=== PATIENT | male | born 1980 | race African-American/Black ===

== ENCOUNTER 2017-03-22 13:57 | Inpatient (IN) | payer SELFPAY ==
[2017-03-22] VITALS (14 sets, daily range): BP systolic 137–235; BP diastolic 90–132; PULSE 60–83; RESP 14–20; TEMP 97.6–97.9; O2SAT 97–100
[~2017-03-22] VITALS: Ht 172.7 cm; Wt 78.3 kg
--- NOTE | 2017-03-22 14:33 | RADRPT ---
EXAM DATE/TIME: 03/22/2017 14:07 [facility] COMPARISON: No previous studies available for comparison. INDICATIONS : Found unresponsive, possible seizures. RADIATION DOSE: 35.73 CTDIvol (mGy) MEDICAL HISTORY : Non-responsive. SURGICAL HISTORY : Non-responsive. ENCOUNTER: Initial ACUITY: 1 day PAIN SCALE: Non-responsive LOCATION: neck TECHNIQUE: Volumetric scanning of the cervical spine was performed. Multiplanar reconstructions in the sagittal, coronal and oblique axial planes were performed. Using automated exposure control and adjustment o f the mA and/or kV according to patient size, radiation dose was kept as low as reasonably achievable to obtain optimal diagnostic quality images. DICOM format image data is available electronically f or review and comparison. FINDINGS: VERTEBRAE: Normal vertebral body height. ALIGNMENT: No evidence of subluxation. C2-C3: The bony spinal canal is normal in size. No evidence of disc bulge or herniation. The neural forami na are bilaterally patent. C3-C4: The bony spinal canal is normal in size. No evidence of disc bulge or herniation. The neural forami na are bilaterally patent. C4-C5: The bony spinal canal is normal in size. No evidence of disc bulge or herniation. The neural forami na are bilaterally patent. C5-C6: The bony spinal canal is normal in size. No evidence of disc bulge or herniation. The neural forami na are bilaterally patent. C6-C7: The bony spinal canal is normal in size. No evidence of disc bulge or herniation. The neural forami na are bilaterally patent. C7-T1: The bony spinal canal is normal in size. No evidence of disc bulge or herniation. The neural forami na are bilaterally patent. CONCLUSION: 1. No acute disease. 2. Minimal cervical spondylosis is noted at C4-5 and to a lesser extent at C3-4 and C5-6. Livan Dos Santos MD on March 22, 2017 at 14:27 Board Certified Radiologist. This report was verified electronically.
--- NOTE | 2017-03-22 14:51 | RADRPT ---
EXAM DATE/TIME: 03/22/2017 14:05 [facility] COMPARISON: No previous studies available for comparison. INDICATIONS : Altered mental status, possible seizures. RADIATION DOSE: 56.35 CTDIvol (mGy) MEDICAL HISTORY : Non-responsive. SURGICAL HISTORY : Non-responsive. ENCOUNTER: Initial ACUITY: 1 day PAIN SCALE: Non-responsive LOCATION: cranial TECHNIQUE: Multiple contiguous axial images were obtained of the head. Using automated exposure control and adj ustment of the mA and/or kV according to patient size, radiation dose was kept as low as reasonably a chievable to obtain optimal diagnostic quality images. DICOM format image data is available electro nically for review and comparison. FINDINGS: CEREBRUM: The ventricles are normal for age. No evidence of midline shift, mass lesion, hemorrhage or acute in farction. No extra-axial fluid collections are seen. POSTERIOR FOSSA: The cerebellum and brainstem are intact. The 4th ventricle is midline. The cerebellopontine angle i s unremarkable. EXTRACRANIAL: The visualized portion of the orbits is intact. Mild polypoid disease in the base of the left maxilla ry sinus. SKULL: The calvaria is intact. No evidence of skull fracture. CONCLUSION: No acute intracranial findings. Kurt Ugarte MD on March 22, 2017 at 14:47 Board Certified Radiologist. This report was verified electronically.
[2017-03-22 15:30] LABS: BLOOD GAS BASE EXCESS 2.3 mmol/L (-2-2); BLOOD GAS CARBOXYHEMOGLOBIN 2.8 % (0-4); BLOOD GAS HCO3 27 mmol/L (22-26); BLOOD GAS METHEMOGLOBIN 0.6 % (0-2); BLOOD GAS O2 HGB SATURATION 88 % (90-100); BLOOD GAS OXYGEN CONTENT 15.8 Vol % (12.0-20.0); BLOOD GAS PCO2 48 mmHg (38-42); BLOOD GAS PO2 63 mmHG (61-120); BLOOD GAS TOTAL HGB 12.8 G/DL (12.0-16.0); TEMP CORR TO 98.6
[2017-03-22 15:31] LABS: CRITICAL VALUE YES; DRAW SITE RT RADIAL; FIO2 40 %; NUMBER OF ARTERIAL PUNCTURES 1; OXYGEN DEVICE VENTILATOR; STAT NO; ULNAR PULSE PRESENT; VENT SETTINGS AC RR14VT550PEEP5
--- NOTE | 2017-03-22 15:33 | PD ---
HPI Chief Complaint: Altered Mental Status Time Seen by Provider: 14:06 Travel History International Travel<30 days: No Contact w/Intl Traveler<30days: No History of Present Illness HPI Young male was brought in by [facility] after being found unresponsive on the street. It sounds like he had a seizure from bystanders. Pt had an episode of bilateral upper extremity rigidity as per [facility]. Blood glucose 252 here. Pt given narcan 0.4mg IV with no response. Pt witnessed to have generalized tonic clonic seizure that lasted for 30 seconds here. It stopped before medication was given. Pt emergently transported to CT scan and after CT, had another episode of generalized tonic clonic seizure in which ativan 6mg was given. Pt was never back to baseline and not arousable. [facility] Social History Tobacco Use: No Allergies-Medications (Allergen,Severity, Reaction): Coded Allergies: UNOBTAINABLE (Unverified , 03/22/17) AMS Review of Systems ROS Limitations: Unresponsive Physical Exam Narrative GENERAL: Young male, not responsive. SKIN: Focused skin assessment warm/dry. HEAD: Atraumatic. Normocephalic. EYES: Pupils equal and round at 5mm bilaterally. Reactive to light bilaterally. ENT: No nasal bleeding or discharge. Mucous membranes pink and moist. NECK:Place in cervical spine collar. CARDIOVASCULAR: Regular rate and rhythm. No murmur appreciated. RESPIRATORY: No accessory muscle use. Clear to auscultation. Breath sounds equal bilaterally. GASTROINTESTINAL: Abdomen soft, non-tender, nondistended. MUSCULOSKELETAL: No obvious deformities. No clubbing. No cyanosis. No edema. NEUROLOGICAL: Unresponsive. Seizure activity seen in the ED. Moves all extremities. Data Data Last Documented VS Vital Signs Date Time Temp Pulse Resp B/P Pulse Ox O2 Delivery O2 Flow Rate FiO2 03/22/17 16:00 97.9 73 20 175/110 99 Nasal Cannula 2 03/22/17 15:[address] Brain W/O Iv Contrast(Rout) (03/22/17 ) Ct Cerv Spine W/O Contrast (03/22/17 ) Electrocardiogram (03/22/17 14:06) Ammonia (03/22/17 14:06) Complete Blood Count With Diff (03/22/17 14:06) Comprehensive Metabolic Panel (03/22/17 14:06) Creatine Kinase (Cpk) (03/22/17 14:06) Prothrombin Time / Inr (Pt) (03/22/17 14:06) Act Partial Throm Time (Ptt) (03/22/17 14:06) Troponin I (03/22/17 14:06) Thyroid Stimulating Hormone (03/22/17 14:06) Urinalysis - C+S If Indicated (03/22/17 14:06) Arterial Blood Gas (Abg) (03/22/17 14:06) Chest, Single Ap (03/22/17 14:06) Blood Glucose (03/22/17 14:06) Ecg Monitoring (03/22/17 14:06) Iv Access Insert/Monitor (03/22/17 14:06) Oximetry (03/22/17 14:06) Drug Screen, Random Urine (03/22/17 14:06) Alcohol (Ethanol) (03/22/17 14:06) Tylenol (Acetaminophen) (03/22/17 14:06) Propofol 1000 Mg/100 Ml Inj (Diprivan 10 (03/22/17 14:45) ^ Infusion (03/22/17 14:31) RASS (03/22/17 14:31) Neurological Rass Scale LAKESHA.Q2H (03/22/17 14:31) Fosphenytoin Inj (Cerebyx Inj) (03/22/17 16:15) Midazolam Inj (Versed Inj) (03/22/17 16:30) Alcohol (Ethanol) (03/22/17 16:26) Salicylates (Aspirin) (03/22/17 16:26) Tylenol (Acetaminophen) (03/22/17 16:26) CKMB (03/22/17 14:40) CKMB% (03/22/17 14:40) Admit Order (Ed Use Only) (03/22/17 16:38) Potassium Chlor 20 Meq Premix (Kcl 20 Me (03/22/17 16:45) Labs Laboratory Tests Test 03/22/17 03/22/17 03/22/17 03/22/17 14:40 15:20 16:00 16:15 White Blood Count 3.9 TH/MM3 Red Blood Count 4.00 MIL/MM3 Hemoglobin 13.0 GM/DL Hematocrit 38.6 % Mean Corpuscular Volume 96.5 FL Mean Corpuscular Hemoglobin 32.5 PG Mean Corpuscular Hemoglobin 33.7 % Concent Red Cell Distribution Width 12.4 % Platelet Count 235 TH/MM3 Mean Platelet Volume 8.5 FL Neutrophils (%) (Auto) 49.6 % Lymphocytes (%) (Auto) 31.2 % Monocytes (%) (Auto) 15.9 % Eosinophils (%) (Auto) 2.5 % Basophils (%) (Auto) 0.8 % Neutrophils # (Auto) 2.0 TH/MM3 Lymphocytes # (Auto) 1.2 TH/MM3 Monocytes # (Auto) 0.6 TH/MM3 Eosinophils # (Auto) 0.1 TH/MM3 Basophils # (Auto) 0.0 TH/MM3 CBC Comment DIFF FINAL Differential Comment Prothrombin Time 11.4 SEC Prothromb Time International 1.0 RATIO Ratio Activated Partial 32.7 SEC Thromboplast Time Urine Color YELLOW Urine Turbidity CLEAR Urine pH 5.5 Urine Specific [place] 1.036 Urine Protein 30 mg/dL Urine Glucose (UA) NEG mg/dL Urine Ketones TRACE mg/dL Urine Occult Blood NEG Urine Nitrite NEG Urine Bilirubin NEG Urine Urobilinogen 4.0 MG/DL Urine Leukocyte Esterase NEG Urine RBC 2 /hpf Urine WBC 1 /hpf Urine Squamous Epithelial 1 /hpf Cells Urine Mucus FEW /lpf Microscopic Urinalysis Comment CATH-CULT NOT IND Sodium Level 142 MEQ/L Potassium Level 3.3 MEQ/L Chloride Level 105 MEQ/L Carbon Dioxide Level 29.6 MEQ/L Anion Gap 7 MEQ/L Blood Urea Nitrogen 11 MG/DL Creatinine 1.33 MG/DL Estimat Glomerular Filtration 46 ML/MIN Rate Random Glucose 127 MG/DL Calcium Level 8.5 MG/DL Total Bilirubin 0.9 MG/DL Aspartate Amino Transf 83 U/L (AST/SGOT) Alanine Aminotransferase 54 U/L (ALT/SGPT) Alkaline Phosphatase 81 U/L Total Creatine Kinase 2305 U/L Creatine Kinase MB 11.8 NG/ML Creatine Kinase MB % 0.5 % Troponin I LESS THAN 0.02 NG/ML Total Protein 7.1 GM/DL Albumin 3.4 GM/DL Thyroid Stimulating Hormone 0.555 uIU/ML 3rd Gen Urine Opiates Screen NEG Acetaminophen Level LESS THAN 2.0 MCG/ML Urine Barbiturates Screen NEG Urine Amphetamines Screen NEG Urine Benzodiazepines Screen POS Urine Cocaine Screen POS Urine Cannabinoids Screen POS Ethyl Alcohol Level LESS THAN 3 MG/DL Blood Gas Puncture Site RT RADIAL Blood Gas Patient Temperature 98.6 Blood Gas HCO3 27 mmol/L Blood Gas Base Excess 2.3 mmol/L Blood Gas Oxygen Saturation 88 % Arterial Blood pH 7.37 Arterial Blood Partial 48 mmHg Pressure CO2 Arterial Blood Partial 63 mmHG Pressure O2 Arterial Blood Oxygen Content 15.8 Vol % Arterial Blood 2.8 % Carboxyhemoglobin Arterial Blood Methemoglobin 0.6 % Blood Gas Hemoglobin 12.8 G/DL Oxygen Delivery Device VENTILATOR Blood Gas Ventilator Setting AC [id number] Blood Gas Inspired Oxygen 40 % Ammonia 35 MCMOL/L Salicylates Level LESS THAN 1.7 MG/DL [facility] Medical Decision Making Medical Screen Exam Complete: Yes Emergency Medical Condition: Yes Interpretation(s) EKG: NSR 76bpm. LAD. R prime in aVR. QRS narrow. QTc 451ms. Differential Diagnosis Status epilepticus vs. alcohol withdrawal vs. cocaine toxicity Narrative Course Young male with seizure like activity but never back to baseline. Pt found on the street with no history. Pt is afebrile and hypertensive. Pt given narcan 0.4mg IV with no change in mental status. Pt intubated for airway protection and status epilepticus. Labs reviewed, no leukocytosis. K: 3.3, will replaced with 20mEq KCl. Creatinine elevated at 1.33. CPK is elevated at 2305. Troponin negative. TSH normal. AST elevated. U tox is positive for benzodiazepine, cocaine and cannabinoids. Alcohol negative. Acetaminophen negative. CT brain negative. CT cspine negative. CXR showed ET tube in good position and NG tube tube. Pt empirically Critical Care Narrative Aggregate critical care time was 90 minutes. Time to perform other separately billable procedures was not included in the critical care time. My time did not include minutes spent treating any other patients simultaneously or on activities that did not directly contribute to the patient's treatment. The services I provided to this patient were to treat and/or prevent clinically significant deterioration that could result in: cardiovascular collapse or . I provided critical care services requiring my management, as noted below: Chart data review, documentation time, medication orders and management, vital sign assessments/reviewing monitor data, ordering and reviewing lab tests, ordering and interpreting/reviewing x-rays and diagnostic studies, care of the patient and discussion of the patient with the admitting physicians. Procedures Procedure Narrative The patient was put in optimal position for the procedure. Rapid sequence intubation was initiated by me using 20 milligrams of etomidate IV and 60 milligrams of rocuronium IV. The patient was intubated with a 8.0 cuffed endotracheal tube. Tube placement was confirmed by visualization of the tube and balloon passing through the cords, capnometry and subsequent chest x-ray. Breath sounds were equal and well aerated bilaterally postintubation. No breath sounds over stomach. Patient tolerated procedure well. Diagnosis Primary Impression: Altered mental status Qualified Code: R41.82 - Altered mental status, unspecified altered mental status type Additional Impression: Status epilepticus Admitting Information Admitting Physician Requests: Sue Pool DO Mar 22, 2017 15:33
--- NOTE | 2017-03-22 15:43 | RADRPT ---
EXAM DATE/TIME: 03/22/2017 14:26 [facility] COMPARISON: No previous studies available for comparison. INDICATIONS : Post intubation. MEDICAL HISTORY : Unobtainable SURGICAL HISTORY : Unobtainable. ENCOUNTER: Initial ACUITY: 1 day PAIN SCORE: Non-responsive. LOCATION: Bilateral chest FINDINGS: An endotracheal tube has its tip 4 cm above the liza. A nasogastric tube has its tip below diaphra gm. The heart and mediastinal structures are normal. The pulmonary vascular pattenr is also normal. The lungs are clear. CONCLUSION: 1. Endotracheal tube in good position 4 cm above the liza. 2. Nasogastric tube in good position in the stomach. 3. No acute focal pulmonary infiltrate or pulmonary vascular congestion. Livan Dos Santos MD on March 22, 2017 at 15:05 Board Certified Radiologist. This report was verified electronically.
[2017-03-22 15:45] LABS: BASOPHIL % 0.8 % (0.0-2.0); BLOOD, URINE NEG (NEG); EOSINOPHIL # 0.1 TH/MM3 (0-0.4); EOSINOPHIL % 2.5 % (0.0-4.0); GLUCOSE,URINE NEG (NEG); HEMATOCRIT 38.6 % (39.0-51.0); HEMO FLAGS DIFF FINAL; KETONE, URINE TRACE mg/dL (NEG); LYMPH % 31.2 % (9.0-44.0); LYMPHOCYTE # 1.2 TH/MM3 (1.0-4.8); MEAN CELL VOLUME 96.5 FL (80.0-100.0); MEAN CORPUSCULAR HEMOGLOBIN 32.5 PG (27.0-34.0); MEAN CORPUSCULAR HGB CONC 33.7 % (32.0-36.0); MONO % 15.9 % (0.0-8.0); MUCUS URINE FEW /lpf (OCC); NEUT % 49.6 % (16.0-70.0); NITRITE,URINE NEG (NEG); PH, URINE 5.5 (5.0-8.5); PLATELET COUNT 235 TH/MM3 (150-450); RED CELL DISTRIBUTION WIDTH 12.4 % (11.6-17.2); SQUAMOUS EPITHELIAL CELL URINE 1 /hpf (0-5); URINE COLOR YELLOW (YELLW/STRAW); WHITE BLOOD COUNT 3.9 TH/MM3 (4.0-11.0)
[2017-03-22 15:47] LABS: COMMENT (UR) CATH-CULT NOT IND; CULTURE IF INDICATED CATH CULTURE NOT IND
[2017-03-22 15:50] LABS: AMPHETAMINE, URINE NEG (NEG); BARBITURATES, URINE NEG (NEG); COCAINE, URINE POS (NEG)
[2017-03-22 15:57] LABS: APTT (PATIENT) 32.7 SEC (24.3-30.1); PROTHROMBIN TIME - PATIENT 11.4 SEC (9.8-11.6)
[2017-03-22] MEDS ORDERED: FOSPHENYTOIN INJ 1,000 MGPE in SODIUM CHLORIDE 0.9% INJ 50 ML IV ONE (16:15)
[2017-03-22 16:19] LABS: ALKALINE PHOSPHATASE 81 U/L (45-117); ALT (GPT) 54 U/L (12-78); ANION GAP 7 MEQ/L (5-15); AST (GOT) 83 U/L (15-37); BICARBONATE 29.6 MEQ/L (21.0-32.0); BLOOD UREA NITROGEN 11 MG/DL (7-18); CHLORIDE 105 MEQ/L (98-107); CREATINE KINASE 2305 U/L (39-308); GLOMERULAR FILTRATION RATE 46 ML/MIN (>89); SODIUM (NA) 142 MEQ/L (136-145); TOTAL BILIRUBIN ADULT 0.9 MG/DL (0.2-1.0)
[2017-03-22] MEDS: PROPOFOL 1000 MG/100 ML INJ 100 ML IV SCH ×2 (16:25→21:15)
[2017-03-22 16:28] LABS: ACETAMINOPHEN LESS THAN 2.0 MCG/ML (10.0-30.0); POTASSIUM 3.3 MEQ/L (3.5-5.1)
[2017-03-22] MEDS ORDERED: MIDAZOLAM HCL 2 MG/2 ML VIAL IV PUSH ONE (16:30)
--- NOTE | 2017-03-22 16:39 | EKG ---
Date Performed: 03/22/2017 Time Performed: 14:46:46 PTAGE: 89 years EKG: Sinus rhythm WITH SINUS ARRHYTHMIA BORDERLINE LEFT AXIS DEVIATION MODERATE INTRAVENTRICULAR CONDUCTION DELAY BORD CARLOS ECG NO PREVIOUS TRACING DOCTOR: Sea Osman Interpretating Date/Time 03/22/2017 16:36:51
[2017-03-22 16:41] LABS: CKMB 11.8 NG/ML (0.5-3.6)
[2017-03-22] MEDS ORDERED: ETOMIDATE 20 MG/10 ML VIAL IV PUSH ONE (16:45)
[2017-03-22] MEDS ORDERED: ROCURONIUM INJ 50 MG/5 ML VIAL IV ONE (16:45)
[2017-03-22] MEDS ORDERED: POTASSIUM CHLOR 20 MEQ PREMIX 100 ML IV ONE (16:45)
[2017-03-22 16:58] LABS: ACETAMINOPHEN LESS THAN 2.0 MCG/ML (10.0-30.0)
[2017-03-22] MEDS ORDERED: CHLORHEXIDINE GLUCONATE 2 % 1 PACK (2 CLOTHS) TOP PRN (17:30)
[2017-03-22] MEDS ORDERED: ONDANSETRON HCL 4 MG/2 ML VIAL IV PRN (17:30)
[2017-03-22] MEDS ORDERED: BISACODYL 10 MG SUPP RECTAL PRN (17:30)
[2017-03-22] MEDS ORDERED: MAGNESIUM HYDROXIDE SUSP 30 ML CUP PO PRN (17:30)
[2017-03-22] MEDS ORDERED: RESP: ALBUTEROL 2.5 MG/IPRATROPIUM 0.5 MG NEB (PRN) INH (17:30)
[2017-03-22] MEDS ORDERED: LACTULOSE SYRUP 20 GM/30 ML CUP PO PRN (17:30)
[2017-03-22] MEDS ORDERED: SENNOSIDES 8.6 MG TAB PO PRN (17:30)
[2017-03-22] MEDS ORDERED: MISCELLANEOUS NURSING INFORMATION XX SCH (17:30)
[2017-03-22] MEDS: SODIUM CHLOR 0.9% 1000 ML INJ 1,000 ML IV SCH (18:44)
[2017-03-22] MEDS: PANTOPRAZOLE SODIUM 40 MG VIAL IV SCH (18:44)
--- NOTE | 2017-03-22 19:04 | HHI.HP ---
HPI Service Critical Care Medicine Primary Care Physician Unknown Admission Diagnosis AMS, status epilepticus Diagnosis: Travel History International Travel<30 Days: No Contact w/Intl Traveler <30 Da: No Traveled to Known Affected Are: No History of Present Illness Young male was brought in by [facility] after being found unresponsive on the street. Per bystanders it seemed to be like a seizure episode. His blood glucose at the scene was 252 here. He was given narcan 0.4mg IV with no response. Later he was witnessed to have generalized tonic clonic seizure that lasted for 30 seconds here in the emergency department. It stopped before medication was given. The CT head was obtained emergently and shortly after the CT was done he had another episode of generalized tonic clonic seizure in which ativan 6mg was given. He was intubated for an airway protection and admitted to ICU. Review of Systems ROS Unable to obtain patient is sedated and intubated and unresponsive Past Family Social History Allergies: Coded Allergies: UNOBTAINABLE (Unverified , 03/22/17) AMS Past Medical History Unable to obtain, patient is sedated and intubated Past Surgical History Unable to obtain, patient is sedated and intubated Reported Medications Unable to obtain, patient is sedated and intubated Active Ordered Medications Current Medications Medications (Trade) Dose Ordered Sig/Hillary Route PRN Reason Start Time Stop Time Status Last Admin Dose Admin Propofol 100 ml @ 0 mls/hr TITRATE IV 03/22/17 14:45 03/22/17 21:15 Sodium Chloride (NS 1000 ml Inj) 1,000 ml @ 84 mls/hr [id number] IV 03/22/17 18:00 03/22/17 18:44 Acetaminophen (Tylenol) 650 mg Q6H PRN PO PAIN 1-10 AND/OR FEVER >101F 03/22/17 17:30 Pantoprazole Sodium (Protonix Inj) 40 mg DAILY IV 03/22/17 18:30 03/22/17 18:44 Ondansetron HCl (Zofran Inj) 4 mg Q6H PRN IV NAUSEA OR VOMITING 03/22/17 17:30 Miscellaneous Information 1 [id number] XX 03/22/17 17:30 Chlorhexidine Gluconate (Chlorhexidine 2% Cloth) 3 pack Taper DAILY@04 TOP 03/23/17 04:00 03/19/18 03:59 Chlorhexidine Gluconate (Chlorhexidine 2% Cloth) 3 pack UNSCH PRN TOP HYGIENIC CARE 03/22/17 17:30 Senna/Docusate Sodium (Bruna-Colace) 1 tab BID PO 03/22/17 21:00 Magnesium Hydroxide (Milk Of Magnesia Liq) 30 ml Q12H PRN PO MILD - MODERATE CONSTIPATION 03/22/17 17:30 Sennosides (Senokot) 17.2 mg Q12H PRN PO MODERATE - SEVERE CONSTIPATION 03/22/17 17:30 Bisacodyl (Dulcolax Supp) 10 mg DAILY PRN RECTAL SEVERE CONSITIPATION 03/22/17 17:30 Lactulose (Lactulose Liq) 30 ml DAILY PRN PO SEVERE CONSITIPATION 03/22/17 17:30 Lorazepam (Ativan Inj) 1 mg Q15M PRN IV PUSH seizures 03/22/17 17:45 Hydralazine HCl (Apresoline Inj) 20 mg Q6H PRN IV SEE LABEL COMMENTS 03/22/17 21:45 03/22/17 21:56 Family History Unable to obtain, patient is sedated and intubated Social History Unable to obtain, patient is sedated and intubated Physical Exam Vital Signs Vital Signs Date Time Temp Pulse Resp B/P Pulse Ox O2 Delivery O2 Flow Rate FiO2 03/22/17 18:30 100 100 03/22/17 17:58 72 173/113 03/22/17 17:04 97 60 03/22/17 17:00 61 173/110 03/22/17 16:45 137/90 03/22/17 16:00 97.9 73 20 175/110 99 Nasal Cannula 2 03/22/17 15:15 211/132 03/22/17 15:15 97.9 72 20 173/113 100 Ventilator 60 03/22/17 14:38 97 40 03/22/17 14:25 83 20 235/132 99 Ventilator 03/22/17 14:21 78 16 164/95 99 Physical Exam GENERAL: Well-nourished, well-developed patient. SKIN: Warm and dry. HEAD: Normocephalic. EYES: No scleral icterus. No injection or drainage. NECK: Supple, trachea midline. No JVD or lymphadenopathy. CARDIOVASCULAR: Regular rate and rhythm without murmurs, gallops, or rubs. RESPIRATORY: Breath sounds equal bilaterally. No accessory muscle use. GASTROINTESTINAL: Abdomen soft, non-tender, nondistended. MUSCULOSKELETAL: No cyanosis, or edema. BACK: Nontender without obvious deformity. No CVA tenderness. EXTREMITIES: No clubbing cyanosis or edema Laboratory Laboratory Tests Test 03/22/17 03/22/17 03/22/17 03/22/17 14:40 15:20 16:00 16:15 White Blood Count 3.9 Red Blood Count 4.00 Hemoglobin 13.0 Hematocrit 38.6 Mean Corpuscular Volume 96.5 Mean Corpuscular Hemoglobin 32.5 Mean Corpuscular Hemoglobin 33.7 Concent Red Cell Distribution Width 12.4 Platelet Count 235 Mean Platelet Volume 8.5 Neutrophils (%) (Auto) 49.6 Lymphocytes (%) (Auto) 31.2 Monocytes (%) (Auto) 15.9 Eosinophils (%) (Auto) 2.5 Basophils (%) (Auto) 0.8 Neutrophils # (Auto) 2.0 Lymphocytes # (Auto) 1.2 Monocytes # (Auto) 0.6 Eosinophils # (Auto) 0.1 Basophils # (Auto) 0.0 CBC Comment DIFF FINAL Differential Comment Prothrombin Time 11.4 Prothromb Time International 1.0 Ratio Activated Partial 32.7 Thromboplast Time Urine Color YELLOW Urine Turbidity CLEAR Urine pH 5.5 Urine Specific [place] 1.036 Urine Protein 30 Urine Glucose (UA) NEG Urine Ketones TRACE Urine Occult Blood NEG Urine Nitrite NEG Urine Bilirubin NEG Urine Urobilinogen 4.0 Urine Leukocyte Esterase NEG Urine RBC 2 Urine WBC 1 Urine Squamous Epithelial 1 Cells Urine Mucus FEW Microscopic Urinalysis Comment CATH-CULT NOT IND Sodium Level 142 Potassium Level 3.3 Chloride Level 105 Carbon Dioxide Level 29.6 Anion Gap 7 Blood Urea Nitrogen 11 Creatinine 1.33 Estimat Glomerular Filtration 46 Rate Random Glucose 127 Calcium Level 8.5 Total Bilirubin 0.9 Aspartate Amino Transf 83 (AST/SGOT) Alanine Aminotransferase 54 (ALT/SGPT) Alkaline Phosphatase 81 Total Creatine Kinase 2305 Creatine Kinase MB 11.8 Creatine Kinase MB % 0.5 Troponin I LESS THAN 0.02 Total Protein 7.1 Albumin 3.4 Thyroid Stimulating Hormone 0.555 3rd Gen Urine Opiates Screen NEG Acetaminophen Level LESS THAN 2.0 Urine Barbiturates Screen NEG Urine Amphetamines Screen NEG Urine Benzodiazepines Screen POS Urine Cocaine Screen POS Urine Cannabinoids Screen POS Ethyl Alcohol Level LESS THAN 3 Blood Gas Puncture Site RT RADIAL Blood Gas Patient Temperature 98.6 Blood Gas HCO3 27 Blood Gas Base Excess 2.3 Blood Gas Oxygen Saturation 88 Arterial Blood pH 7.37 Arterial Blood Partial 48 Pressure CO2 Arterial Blood Partial 63 Pressure O2 Arterial Blood Oxygen Content 15.8 Arterial Blood 2.8 Carboxyhemoglobin Arterial Blood Methemoglobin 0.6 Blood Gas Hemoglobin 12.8 Oxygen Delivery Device VENTILATOR Blood Gas Ventilator Setting AC [id number] Blood Gas Inspired Oxygen 40 Ammonia 35 Salicylates Level LESS THAN 1.7 Result Diagram: 03/22/17 1440 03/22/17 1440 Imaging Last 24 hours Impressions Chest X-Ray 03/22/17 1406 Signed Impressions: Service Date/Time: February 14:26 - CONCLUSION: 1. Endotracheal tube in good position 4 cm above the liza. 2. Nasogastric tube in good position in the stomach. 3. No acute focal pulmonary infiltrate or pulmonary vascular congestion. Livan Dos Santos MD Assessment and Plan Assessment and Plan Respiratory failure - Debated for an airway protection - No weaning pending until neurologically improved - Continue mechanical ventilation - CXR and ABG daily Status epilepticus - Loaded with Dilantin - Continue Dilantin scheduled - Propofol for seizure control as well - Further management per neurology - Aggressive IV fluid hydration Hypokalemia - Electrolyte replacement per ICU protocol Polysubstance abuse - Positive for cocaine marijuana - Monitor for withdrawal - Benzodiazepines when necessary DVT GI prophylaxis - Teds SCDs - Subcutaneous heparin - Pepcid Critical Care: The total critical care time was 35 minutes. Time to perform other separately billable procedures was not included in the critical care time. Bhavesh Rick MD Mar 22, 2017 19:04
[2017-03-22] MEDS: DOCUSATE SODIUM 50 MG/SENNA 8.6 MG TAB PO SCH (20:03)
[2017-03-22] MEDS: hydrALAZINE HCL 20 MG/ML VIAL IV PRN (21:56)
[2017-03-23] VITALS (19 sets, daily range): BP systolic 124–181; BP diastolic 67–123; PULSE 64–79; RESP 11–14; TEMP 97.9–99.1; O2SAT 95–100
[2017-03-23] MEDS ORDERED: POTASSIUM PHOSPHATE MONOBASIC 500 MG TAB PO/TUBE PRN (02:15)
[2017-03-23] MEDS ORDERED: POTASSIUM CHLOR 40 MEQ PREMIX 100 ML IV PRN ×2 (02:15)
[2017-03-23] MEDS ORDERED: SODIUM CHLOR 0.9% 1000 ML INJ 1,000 ML IV ONE ×3 (02:15)
[2017-03-23] MEDS ORDERED: SODIUM PHOSPHATE INJ 30 MMOL in SODIUM CHLOR 0.9% 250 ML INJ 240 ML IV PRN (02:15)
[2017-03-23] MEDS ORDERED: POTASSIUM PHOSPHATE INJ 30 MMOL in SODIUM CHLOR 0.9% 250 ML INJ 250 ML IV PRN (02:15)
[2017-03-23] MEDS ORDERED: POTASSIUM CHLORIDE 25 MEQ EFFERVESCENT TAB PO PRN (02:15)
[2017-03-23] MEDS ORDERED: MAGNESIUM SULFATE INJ 2 GM in SODIUM CHLORIDE 0.9% INJ 96 ML IV PRN (02:15)
[2017-03-23] MEDS ORDERED: MAGNESIUM OXIDE 400 MG TAB PO PRN (02:15)
[2017-03-23] MEDS ORDERED: POTASSIUM CHLOR 20 MEQ PREMIX 100 ML IV PRN ×2 (02:15)
[2017-03-23] MEDS ORDERED: POTASSIUM PHOSPHATE MONOBASIC 500 MG TAB PO PRN (02:15)
[2017-03-23] MEDS ORDERED: MAGNESIUM SULFATE INJ 4 GM in SODIUM CHLORIDE 0.9% INJ 92 ML IV PRN (02:15)
[2017-03-23] MEDS: CHLORHEXIDINE GLUCONATE 2 % 1 PACK (2 CLOTHS) TOP SCH (03:10)
[2017-03-23] MEDS: hydrALAZINE HCL 20 MG/ML VIAL IV PRN ×2 (04:04→09:39)
[2017-03-23] MEDS ORDERED: MIDAZOLAM 100 MG/ML INJ 100 ML IV SCH (05:00)
[2017-03-23 05:24] LABS: BICARBONATE 27.9 MEQ/L (21.0-32.0); MAGNESIUM 2.2 MG/DL (1.5-2.5); POTASSIUM 3.5 MEQ/L (3.5-5.1)
[2017-03-23] MEDS: fentaNYL DRIP 250 ML IV SCH ×2 (05:28→19:01)
[2017-03-23] MEDS: PHENYTOIN INJ 100 MG/2 ML VIAL IV SCH ×3 (05:56→21:01)
[2017-03-23] MEDS: SODIUM CHLOR 0.9% 1000 ML INJ 1,000 ML IV SCH ×3 (06:49→15:10)
[2017-03-23] MEDS ORDERED: DILTIAZEM HCL 25 MG/5 ML VIAL IV ONE (07:15)
[2017-03-23] MEDS: PROPOFOL 1000 MG/100 ML INJ 100 ML IV SCH ×4 (07:50→22:22)
--- NOTE | 2017-03-23 07:52 | HHI.CCPN ---
Subjective Remarks/Hospital Course Young male was brought in by [facility] after being found unresponsive on the street. Per bystanders it seemed to be like a seizure episode. His blood glucose at the scene was 252 here. He was given narcan 0.4mg IV with no response. Later he was witnessed to have generalized tonic clonic seizure that lasted for 30 seconds here in the emergency department. It stopped before medication was given. The CT head was obtained emergently and shortly after the CT was done he had another episode of generalized tonic clonic seizure in which ativan 6mg was given. He was intubated for an airway protection and admitted to ICU. Subjective: 03/23: The patient was noted to be hypertensive overnight MAP [id number], nonresponsive to IV hydralazine, and deep sedation. Patient receiving Cardizem IV this a.m.. The patient has not been responsive since admission to the ED, no further seizure activity. Patient continues on Dilantin. Plan to perform sedation vacation today, assess neurological status, obtain EEG. Urine toxicity revealed the patient was positive for cocaine, marijuana and benzodiazepine. Objective Vital Signs Date Time Temp Pulse Resp B/P Pulse Ox O2 Delivery O2 Flow Rate FiO2 03/23/17 06:00 69 03/23/17 04:06 100 50 03/23/17 04:00 99.1 11 181/123 03/22/17 16:00 Nasal Cannula 2 Intake and Output 03/22/17 03/22/17 03/23/17 08:00 16:00 00:00 Intake Total 348 ml Output Total 650 ml Balance -302 ml Result Diagram: 03/22/17 1440 03/23/17 0443 Other Results Laboratory Tests Test 03/22/17 15:20 Blood Gas Puncture Site RT RADIAL Blood Gas Patient Temperature 98.6 Blood Gas HCO3 27 mmol/L (22-26) Blood Gas Base Excess 2.3 mmol/L (-2-2) Blood Gas Oxygen Saturation 88 % (90-100) Arterial Blood pH 7.37 (7.380-7.420) Arterial Blood Partial 48 mmHg (38-42) Pressure CO2 Arterial Blood Partial 63 mmHG Pressure O2 (61-120) Arterial Blood Oxygen Content 15.8 Vol % (12.0-20.0) Arterial Blood 2.8 % (0-4) Carboxyhemoglobin Arterial Blood Methemoglobin 0.6 % (0-2) Blood Gas Hemoglobin 12.8 G/DL (12.0-16.0) Oxygen Delivery Device VENTILATOR Blood Gas Ventilator Setting AC [id number] Blood Gas Inspired Oxygen 40 % Imaging Last 24 hours Impressions Chest X-Ray 03/22/17 1406 Signed Impressions: Service Date/Time: February 14:26 - CONCLUSION: 1. Endotracheal tube in good position 4 cm above the liza. 2. Nasogastric tube in good position in the stomach. 3. No acute focal pulmonary infiltrate or pulmonary vascular congestion. Livan Dos Santos MD Objective Remarks GENERAL: Well-nourished, well-developed patient intubated and sedated SKIN: Warm and dry. HEAD: Normocephalic. EYES: No scleral icterus. No injection or drainage. NECK: Supple, trachea midline. No JVD or lymphadenopathy. Orotracheally intubated CARDIOVASCULAR: Regular rate and rhythm without murmurs, gallops, or rubs. RESPIRATORY: Mechanical ventilation Breath sounds equal bilaterally. GASTROINTESTINAL: Abdomen soft, non-tender, nondistended. OGT to gravity MUSCULOSKELETAL: No cyanosis, or edema. EXTREMITIES: No clubbing cyanosis or edema NEURO: GCS 3T. Intubated and sedated on Versed and fentanyl. Unable to assess movement of extremities Urinary Catheter: Yes Painting insert reason: Measure Accurate Output Date of Insertion: Mar 22, 2017 A/P Assessment and Plan Acute hypoxemic Respiratory failure - Intubated for an airway protection - No weaning pending until neurologically improved - Continue mechanical ventilation - Obtain ABG -Versed and fentanyl for ventilator synchrony Status epilepticus - Loaded with Dilantin - Continue Dilantin scheduled - Propofol for seizure control as well - Further management per neurology - Aggressive IV fluid hydration -Plan for sedation vacation today assess neurological status, early on Versed and fentanyl for ventilator synchrony Hypokalemia - Electrolyte replacement per ICU protocol Polysubstance abuse - Positive for cocaine marijuana - Monitor for withdrawal - Benzodiazepines when necessary Hypertensive crisis -Cardizem 10 mg IV 1 dose -Consider nicardipine infusion -Maintain systolic blood pressure less than 160 DVT GI prophylaxis - Teds SCDs - Subcutaneous heparin - Pepcid Dispo: Discussed with MACHINE OPERATOR CANE CUTTER at bedside. This patient remains critically ill with one or more organ systems which are or may become a threat to life. I have spent in excess of 30 minutes discontinuously in the care and management of this patient. This time is exclusive of procedures, and includes, but is not limited to, evaluation of the patient, review of the medical record, discussions with family, consultants, nursing staff, or respiratory therapy, and documentation in the medical record. Physician Maame Bose MD Mar 23, 2017 07:52
[2017-03-23] MEDS: DOCUSATE SODIUM 50 MG/SENNA 8.6 MG TAB PO SCH ×2 (09:39→21:01)
[2017-03-23] MEDS: PANTOPRAZOLE SODIUM 40 MG VIAL IV SCH (09:39)
[2017-03-23] MEDS: niCARdipine 25 MG/NS 250 ML Vial2Bag or IV room IV SCH ×6 (11:17→20:53)
--- NOTE | 2017-03-23 11:30 | EKG ---
Date Performed: 03/23/2017 Time Performed: 08:49:04 PTAGE: 89 years EKG: Sinus rhythm MARKED LEFT AXIS DEVIATION NONSPECIFIC ST ELEVATION ABNORMAL ECG INTERPRETATION BASED ON A DEFAULT A GE OF 40 YEARS NO SIGNIFICANT CHANGE FROM PRIOR ELECTROCARDIOGRAM. PREVIOUS TRACING : 03/22/2017 14.46 DOCTOR: Sea Osman Interpretating Date/Time 03/23/2017 11:29:41
--- NOTE | 2017-03-23 12:44 | ECHRPT ---
Indication: CONCLUSIONS Normal left ventricular size. Mild concentric left ventricular hypertrophy. The left ventricular systolic function is grossly normal on limited imaging with an EF of 78 %. No regional wall motion abnormalities are present. Left ventricular diastolic function parameters are normal. BP: 181 / 123 HR: 73 Rhythm: Sinus MEASUREMENTS (Male / Female) Normal Values Technical Quality:Good 2D ECHO LV Diastolic Diameter PLAX 4.7 cm 4.2 - 5.9 / 3.9 - 5.3 cm LV Systolic Diameter PLAX 2.9 cm IVS Diastolic Thickness 1.3 cm 0.6 - 1.0 / 0.6 - 0.9 cm LVPW Diastolic Thickness 1.3 cm 0.6 - 1.0 / 0.6 - 0.9 cm LV Relative Wall Thickness 0.5 LVOT Diameter 2.5 cm Aortic Root Diameter 3.7 cm LA Systolic Diameter LX 3.4 cm 3.0 - 4.0 / 2.7 - 3.8 cm M-MODE AV Cusp Separation MM 2.6 cm DOPPLER AV Peak Velocity 136.0 cm/s AV Peak Gradient 7.4 mmHg AV Mean Gradient 4.0 mmHg AV Velocity Time Integral 26.2 cm LVOT Peak Velocity 102.0 cm/s LVOT Peak Gradient 4.2 mmHg LVOT Velocity Time Integral 21.5 cm LVOT Cardiac Index 3883.2 cm/minm AV Area Cont Eq vti 4.0 cm AV Area Cont Eq pk 3.7 cm Mitral E Point Velocity 80.5 cm/s Mitral A Point Velocity 86.9 cm/s Mitral E to A Ratio 0.9 LV E' Lateral Velocity 9.7 cm/s Mitral E to LV E' Lateral Ratio 8.3 LV E' Septal Velocity 10.4 cm/s Mitral E to LV E' Septal Ratio 7.7 TR Peak Velocity 212.0 cm/s TR Peak Gradient 18.0 mmHg PV Peak Velocity 69.9 cm/s PV Peak Gradient 2.0 mmHg FINDINGS LEFT VENTRICLE Normal left ventricular size. Mild concentric left ventricular hypertrophy. The left ventricular systolic function is grossly normal on limited imaging with an EF of 78 %. No regional wall motion abnormalities are present. Left ventricular diastolic function parameters are normal. RIGHT VENTRICLE Normal right ventricular size and systolic function. LEFT ATRIUM The left atrial size is normal. RIGHT ATRIUM The right atrial size is normal. ATRIAL SEPTUM Normal atrial septal thickness without atrial level shunting by limited color doppler interrogation. AORTA The aortic root and proximal ascending aorta are normal in size on limited imaging. MITRAL VALVE Structurally normal mitral valve. [id number] mitral valve regurgitation There is an enlongated chordae with chordal SERAFIN without obstruction. AORTIC VALVE Trileaflet aortic valve. No aortic valve regurgitation. No aortic valve stenosis. TRICUSPID VALVE Structurally normal tricuspid valve. There is mild tricuspid valve regurgitation. PULMONARY VALVE No pulmonary valve regurgitation or stenosis. VESSELS The inferior vena cava was not well visualized. PERICARDIUM No pericardial effusion. Raymond Noble MD (Electronically Signed) Final Date:23 March 2017 12:43
[2017-03-23 13:15] LABS: ALT (GPT) 45 U/L (12-78); AST (GOT) 46 U/L (15-37)
[2017-03-23 13:18] LABS: ALKALINE PHOSPHATASE 76 U/L (45-117); INDIRECT BILIRUBIN 0.4 MG/DL (0.0-0.8); TOTAL BILIRUBIN ADULT 0.5 MG/DL (0.2-1.0)
--- NOTE | 2017-03-23 13:56 | MB ---
cc: FARAZ MABRY M.D. DATE OF CONSULTATION: 03/23/2017 REASON FOR CONSULTATION: He is seen in neurological consultation. He was brought to the hospital yesterday with the history of being found unresponsive on the street. The bystanders seen to be like a seizure episode. Blood sugar was 252 and he was given Narcan with no response to this. He was subsequently noted to have a tonic-clonic seizure in the emergency department. Apparently had a second seizure in the emergency room and he was intubated. He is seen in the intensive care unit and the sedation has been on hold for the short period of time, by the time I saw him. He had been on propofol and has been given Dilantin, low old being. The patient was awakened and with somatosensory stimulation. The pupils were small. With chest pinching / pressure stimulation he did withdraw moved, and looked towards the stimulation. He seemed to be able to move all four extremities to this type of stimulation. Reflexes were diminished, but present at the knees and nearly absent at the ankles. Plantar responses flexor. He was positive for cocaine and marijuana on the toxicology screen. ASSESSMENT: Encephalopathy with seizures. Encephalopathy likely related to drug abuse. The head CT and cervical spine CT were negative studies. He is intubated and Dilantin has been given. He is to have an electroencephalogram study and will continue Dilantin along with the remainder of the critical care management. I will follow the neurological course. At first his prognosis seems to be encouraging but evidently this is to worry to make a determination. Eventually he might benefit in having an MRI brain, but we will follow. MD NATASHA James/janis /10:19 AM /1:37 PM
[2017-03-23 17:32] LABS: CKMB 17.4 NG/ML (0.5-3.6)
[2017-03-23 18:36] LABS: BLOOD GAS BASE EXCESS -0.5 mmol/L (-2-2); BLOOD GAS CARBOXYHEMOGLOBIN 1.2 % (0-4); BLOOD GAS HCO3 24 mmol/L (22-26); BLOOD GAS O2 HGB SATURATION 94 % (90-100); BLOOD GAS OXYGEN CONTENT 17.4 Vol % (12.0-20.0); BLOOD GAS PCO2 39 mmHg (38-42); BLOOD GAS PO2 84 mmHg (61-120); BLOOD GAS TOTAL HGB 13.1 G/DL (12.0-16.0); CRITICAL VALUE NO; OXYGEN DEVICE VENTILATOR; TEMP CORR TO 98.6
[2017-03-23 18:37] LABS: DRAW SITE ART LINE; FIO2 40 %; STAT NO; VENT SETTINGS A/C 550/14/5PEEP
[2017-03-24] VITALS (18 sets, daily range): BP systolic 128–174; BP diastolic 75–94; PULSE 73–93; RESP 14–18; TEMP 97.8–99; O2SAT 83–100
[2017-03-24] MEDS: LORazepam 2 MG/ML VIAL IV PUSH PRN ×2 (00:50→14:03)
[2017-03-24] MEDS: CHLORHEXIDINE GLUCONATE 2 % 1 PACK (2 CLOTHS) TOP SCH (04:00)
[2017-03-24] MEDS: SODIUM CHLOR 0.9% 1000 ML INJ 1,000 ML IV SCH ×2 (04:17→15:28)
[2017-03-24 04:33] LABS: BLOOD GAS BASE EXCESS -0.5 mmol/L (-2-2); BLOOD GAS CARBOXYHEMOGLOBIN 1.4 % (0-4); BLOOD GAS HCO3 24 mmol/L (22-26); BLOOD GAS O2 HGB SATURATION 95 % (90-100); BLOOD GAS OXYGEN CONTENT 17.5 Vol % (12.0-20.0); BLOOD GAS PCO2 40 mmHg (38-42); BLOOD GAS PO2 96 mmHg (61-120); CRITICAL VALUE NO; DRAW SITE ART LINE; FIO2 40 %; OXYGEN DEVICE VENTILATOR; STAT NO; TEMP CORR TO 98.6
[2017-03-24 04:34] LABS: VENT SETTINGS VAC14/550/PEEP5
[2017-03-24 04:56] LABS: HEMATOCRIT 40.7 % (39.0-51.0); MEAN CELL VOLUME 96.2 FL (80.0-100.0); MEAN CORPUSCULAR HGB CONC 33.3 % (32.0-36.0); PLATELET COUNT 209 TH/MM3 (150-450); RED BLOOD COUNT 4.23 MIL/MM3 (4.50-5.90); RED CELL DISTRIBUTION WIDTH 12.9 % (11.6-17.2); REVIEW FLAG FINAL; WHITE BLOOD COUNT 11.6 TH/MM3 (4.0-11.0)
[2017-03-24 05:12] LABS: BICARBONATE 30.2 MEQ/L (21.0-32.0); MAGNESIUM 1.8 MG/DL (1.5-2.5); POTASSIUM 3.1 MEQ/L (3.5-5.1)
[2017-03-24] MEDS: PHENYTOIN INJ 100 MG/2 ML VIAL IV SCH ×3 (05:14→22:22)
[2017-03-24] MEDS: PROPOFOL 1000 MG/100 ML INJ 100 ML IV SCH (05:14)
[2017-03-24] MEDS: fentaNYL DRIP 250 ML IV SCH (05:14)
[2017-03-24] MEDS ORDERED: MAGNESIUM SULFATE 1 GM PREMIX 100 ML IV ONE (07:30)
[2017-03-24] MEDS ORDERED: DEXMEDETOMIDINE INJ 200 MCG in SODIUM CHLORIDE 0.9% INJ 50 ML IV SCH (07:45)
[2017-03-24] MEDS: PANTOPRAZOLE SODIUM 40 MG VIAL IV SCH (07:52)
[2017-03-24] MEDS: niCARdipine 25 MG/NS 250 ML Vial2Bag or IV room IV SCH ×2 (07:52)
[2017-03-24] MEDS: DOCUSATE SODIUM 50 MG/SENNA 8.6 MG TAB PO SCH ×2 (07:52→22:07)
--- NOTE | 2017-03-24 08:59 | HHI.CCPN ---
Subjective Remarks/Hospital Course Young male was brought in by [facility] after being found unresponsive on the street. Per bystanders it seemed to be like a seizure episode. His blood glucose at the scene was 252 here. He was given narcan 0.4mg IV with no response. Later he was witnessed to have generalized tonic clonic seizure that lasted for 30 seconds here in the emergency department. It stopped before medication was given. The CT head was obtained emergently and shortly after the CT was done he had another episode of generalized tonic clonic seizure in which ativan 6mg was given. He was intubated for an airway protection and admitted to ICU. Subjective: 03/23: The patient was noted to be hypertensive overnight MAP [id number], nonresponsive to IV hydralazine, and deep sedation. Patient receiving Cardizem IV this a.m.. The patient has not been responsive since admission to the ED, no further seizure activity. Patient continues on Dilantin. Plan to perform sedation vacation today, assess neurological status, obtain EEG. Urine toxicity revealed the patient was positive for cocaine, marijuana and benzodiazepine. 03/24: Tmax 99.0 Patient reportedly had one seizure last night and received Ativan 1 dose. EEG pending today. On sedation vacation yesterday the patient was moving extremities following commands, and combative. Plan for CPAP trials this a.m.. Nicardipine infusion discontinued. The patient was placed on Norvasc for continued hypertension. Objective Vital Signs Date Time Temp Pulse Resp B/P Pulse Ox O2 Delivery O2 Flow Rate FiO2 03/24/17 07:44 83 40 03/24/17 06:00 85 03/24/17 04:00 99.0 16 138/81 161/76 03/22/17 16:00 Nasal Cannula 2 Intake and Output 03/23/17 03/23/17 03/24/17 08:00 16:00 00:00 Intake Total 1911 ml 3145 ml 1065 ml Output Total 950 ml 3525 ml 1500 ml Balance 961 ml -380 ml -435 ml Result Diagram: 03/24/17 0430 03/24/17 0430 Other Results Laboratory Tests Test 03/23/17 03/24/17 18:30 04:18 Blood Gas Puncture Site ART LINE ART LINE Blood Gas Patient Temperature 98.6 98.6 Blood Gas HCO3 24 mmol/L 24 mmol/L (22-26) (22-26) Blood Gas Base Excess -0.5 mmol/L -0.5 mmol/L (-2-2) (-2-2) Blood Gas Oxygen Saturation 94 % (90-100) 95 % (90-100) Arterial Blood pH 7.40 7.40 (7.380-7.420) (7.380-7.420) Arterial Blood Partial 39 mmHg (38-42) 40 mmHg (38-42) Pressure CO2 Arterial Blood Partial 84 mmHg 96 mmHg Pressure O2 (61-120) (61-120) Arterial Blood Oxygen Content 17.4 Vol % 17.5 Vol % (12.0-20.0) (12.0-20.0) Arterial Blood 1.2 % (0-4) 1.4 % (0-4) Carboxyhemoglobin Arterial Blood Methemoglobin 1.0 % (0-2) 1.0 % (0-2) Blood Gas Hemoglobin 13.1 G/DL 13.0 G/DL (12.0-16.0) (12.0-16.0) Oxygen Delivery Device VENTILATOR VENTILATOR Blood Gas Ventilator Setting A/C VAC14/550/PEEP5 550/14/5PEEP Blood Gas Inspired Oxygen 40 % 40 % Imaging Last 24 hours Impressions Chest X-Ray 03/22/17 1406 Signed Impressions: Service Date/Time: February 14:26 - CONCLUSION: 1. Endotracheal tube in good position 4 cm above the liza. 2. Nasogastric tube in good position in the stomach. 3. No acute focal pulmonary infiltrate or pulmonary vascular congestion. Livan Dos Santos MD Objective Remarks GENERAL: Well-nourished, well-developed patient intubated and sedated SKIN: Warm and dry. HEAD: Normocephalic. EYES: No scleral icterus. No injection or drainage. NECK: Supple, trachea midline. No JVD or lymphadenopathy. Orotracheally intubated. c-collar in place CARDIOVASCULAR: Regular rate and rhythm without murmurs, gallops, or rubs. RESPIRATORY: Mechanical ventilation Breath sounds equal bilaterally. GASTROINTESTINAL: Abdomen soft, non-tender, nondistended. OGT to gravity MUSCULOSKELETAL: No cyanosis, or edema. EXTREMITIES: No clubbing cyanosis or edema NEURO: GCS 3T. Intubated and sedated placed on dexmedetomidine in anticipation for CPAP trials and possible extubation. His extremities 4, combative. Date of Insertion: Mar 22, 2017 A/P Assessment and Plan Acute hypoxemic Respiratory failure - Intubated for an airway protection -Begin CPAP trials -Versed and fentanyl discontinued, Precedex in anticipation for CPAP trials and possible extubation - Status epilepticus -03/22Loaded with Dilantin - Continue Dilantin scheduled - Further management per neurology - IV fluids normal saline at 125/hour -GCS 11 T -Neurology following Hypokalemia - Electrolyte replacement per ICU protocol Polysubstance abuse - Positive for cocaine marijuana - Monitor for withdrawal - Benzodiazepines when necessary Hypertensive crisis- -Norvasc 10 mg daily -Nicardipine discontinued -Maintain systolic blood pressure less than 160 DVT GI prophylaxis - Teds SCDs - Subcutaneous heparin - Pepcid Dispo: Discussed with HOUSE MOVER HELPER at bedside. This patient remains critically ill with one or more organ systems which are or may become a threat to life. I have spent in excess of 30 minutes discontinuously in the care and management of this patient. This time is exclusive of procedures, and includes, but is not limited to, evaluation of the patient, review of the medical record, discussions with family, consultants, nursing staff, or respiratory therapy, and documentation in the medical record. Physician Maame Bose MD Mar 24, 2017 08:59
[2017-03-24 09:28] LABS: CKMB 4.2 NG/ML (0.5-3.6)
--- NOTE | 2017-03-24 16:17 | HHI.PR ---
Review/Management Daily Summary 03/24 sedation beling reduced awakened partially to my exam 2 hrs ago followed simple commands and moveb all 4 limbs will review eeg and check dph level Subjective Subjective Comments seizure last night? Active Medications Current Medications Medications (Trade) Dose Ordered Sig/Hillary Route Start Time Stop Time Status Last Admin (NS 1000 ml Inj) 1,000 ml @ 84 mls/hr [id number] IV 03/22/17 18:00 03/24/17 15:28 (Tylenol) 650 mg Q6H PRN PO 03/22/17 17:30 (Protonix Inj) 40 mg DAILY IV 03/22/17 18:30 03/24/17 07:52 (Zofran Inj) 4 mg Q6H PRN IV 03/22/17 17:30 Miscellaneous Information 1 [id number] XX 03/22/17 17:30 (Chlorhexidine 2% Cloth) 3 pack Taper DAILY@04 TOP 03/23/17 04:00 03/19/18 03:59 03/24/17 04:00 (Chlorhexidine 2% Cloth) 3 pack UNSCH PRN TOP 03/22/17 17:30 (Bruna-Colace) 1 tab BID PO 03/22/17 21:00 03/24/17 07:52 (Milk Of Magnesia Liq) 30 ml Q12H PRN PO 03/22/17 17:30 (Senokot) 17.2 mg Q12H PRN PO 03/22/17 17:30 (Dulcolax Supp) 10 mg DAILY PRN RECTAL 03/22/17 17:30 (Lactulose Liq) 30 ml DAILY PRN PO 03/22/17 17:30 (Ativan Inj) 1 mg Q15M PRN IV PUSH 03/22/17 17:45 03/24/17 14:03 Hydralazine HCl 20 mg 20 mg Q6H PRN IV 03/22/17 21:45 03/23/17 09:39 Potassium Chloride 100 ml @ 50 mls/hr Q2H PRN IV 03/23/17 02:15 (KCl 20 Meq Premix Inj) 100 ml @ 50 mls/hr Q2H PRN IV 03/23/17 02:15 Potassium Bicarb/ Potassium Chloride 50 meq 50 meq UNSCH PRN PO 03/23/17 02:15 Potassium Chloride 100 ml @ 25 mls/hr UNSCH PRN IV 03/23/17 02:15 Potassium Chloride 100 ml @ 50 mls/hr Q2H PRN IV 03/23/17 02:15 (Magnesium Sulfate Inj/NS Inj) 100 ml @ 50 mls/hr UNSCH PRN IV 03/23/17 02:15 Magnesium Oxide 800 mg 800 mg UNSCH PRN PO 03/23/17 02:15 (Magnesium Sulfate Inj/NS Inj) 100 ml @ 50 mls/hr UNSCH PRN IV 03/23/17 02:15 Potassium Phosphate 2000 mg 2,000 mg Q4H PRN PO 03/23/17 02:15 (Sodium Phosphate Inj/NS 250 ml Inj) 250 ml @ 42 mls/hr UNSCH PRN IV 03/23/17 02:15 Potassium Phosphate 2000 mg 2,000 mg UNSCH PRN PO/TUBE 03/23/17 02:15 (Potassium Phosphate Inj/NS 250 ml Inj) 260 ml @ 42 mls/hr UNSCH PRN IV 03/23/17 02:15 (Dilantin Inj) 100 mg Q8HR IV 03/23/17 06:00 03/24/17 15:29 (Norvasc) 10 mg DAILY PO 03/24/17 09:00 03/24/17 07:52 Allergies Allergies Coded Allergies UNOBTAINABLE (Unverified03/22/17) Exam I&O / VS 03/23/17 03/23/17 03/24/17 15:00 23:00 07:00 Intake Total 3145 ml 1065 ml 1325 ml Output Total 3525 ml 1500 ml 2500 ml Balance -380 ml -435 ml -1175 ml Intake IV Total 3085 ml 1065 ml 1325 ml Tube Irrigant 60 ml Output Urine Total 3525 ml 1500 ml 2500 ml # Bowel Movements 0 Vital Signs Date Time Temp Pulse Resp B/P Pulse Ox O2 Delivery O2 Flow Rate FiO2 03/24/17 14:43 94 Nasal Cannula 4.00 03/24/17 14:00 81 03/24/17 12:02 100 40 03/24/17 12:00 75 03/24/17 12:00 40 03/24/17 12:00 98.6 75 14 144/94 100 155/84 03/24/17 10:00 100 40 03/24/17 10:00 79 03/24/17 08:00 98.7 82 15 142/87 99 169/82 03/24/17 08:00 40 03/24/17 08:00 82 03/24/17 07:44 83 40 03/24/17 06:00 85 03/24/17 04:11 97 40 03/24/17 04:00 99.0 81 16 138/81 97 161/76 03/24/17 04:00 40 03/24/17 04:00 81 03/24/17 02:00 80 03/24/17 01:22 96 40 03/24/17 00:00 73 03/24/17 00:00 40 03/24/17 00:00 97.8 73 14 140/83 96 167/79 03/23/17 22:22 95 40 03/23/17 22:00 67 03/23/17 20:31 96 40 03/23/17 20:00 98.0 66 14 129/76 97 154/73 03/23/17 20:00 40 03/23/17 20:00 66 03/23/17 18:00 64 Objective Micro and Labs Laboratory Tests Test 03/23/17 03/24/17 03/24/17 18:30 04:18 04:30 Blood Gas Puncture Site ART LINE ART LINE Blood Gas Patient Temperature 98.6 98.6 Blood Gas HCO3 24 24 Blood Gas Base Excess -0.5 -0.5 Blood Gas Oxygen Saturation 94 95 Arterial Blood pH 7.40 7.40 Arterial Blood Partial 39 40 Pressure CO2 Arterial Blood Partial 84 96 Pressure O2 Arterial Blood Oxygen Content 17.4 17.5 Arterial Blood 1.2 1.4 Carboxyhemoglobin Arterial Blood Methemoglobin 1.0 1.0 Blood Gas Hemoglobin 13.1 13.0 Oxygen Delivery Device VENTILATOR VENTILATOR Blood Gas Ventilator Setting A/C VAC14/550/PEEP5 550/14/5PEEP Blood Gas Inspired Oxygen 40 40 White Blood Count 11.6 Red Blood Count 4.23 Hemoglobin 13.5 Hematocrit 40.7 Mean Corpuscular Volume 96.2 Mean Corpuscular Hemoglobin 32.0 Mean Corpuscular Hemoglobin 33.3 Concent Red Cell Distribution Width 12.9 Platelet Count 209 Mean Platelet Volume 8.3 Sodium Level 141 Potassium Level 3.1 Chloride Level 107 Carbon Dioxide Level 30.2 Anion Gap 4 Blood Urea Nitrogen 2 Creatinine 0.69 Estimat Glomerular Filtration 120 Rate Random Glucose 107 Calcium Level 8.4 Phosphorus Level 2.3 Magnesium Level 1.8 Total Creatine Kinase 683 Creatine Kinase MB 4.2 Creatine Kinase MB % 0.6 Date/Time Procedure Status Source Growth 03/23/17 11:55 Aerobic Blood Culture - Preliminary Resulted Blood Peripheral NO GROWTH IN 1 DAY 03/23/17 11:55 Anaerobic Blood Culture - Preliminary Resulted Blood Peripheral NO GROWTH IN 1 DAY Gilson Lantigua MD Mar 24, 2017 16:17
--- NOTE | 2017-03-24 17:08 | MG ---
cc: FARAZ LANTIGUA M.D. Lab No: Date: 03/24/2017 Age: 40 (approx) Sex: M Race: HISTORY: An EEG was obtained on this approximately 40-year-old man with history of being intubated and agitated. Apparently the patient has had multiple seizures with a positive tox screen. DESCRIPTION OF RECORDING: The patient is sedated with Diprivan and Precedex. The EEG is showing low amplitude beta rhythms diffusely. There is some intermixed alpha activity in the 10 to 14 per second range. There are some theta and delta rhythms bilaterally. The background is at times reactive. Later on, there is muscle artifact with the patient raising the extremities and there is a lesser amount of the slower rhythms. Photic stimulation disclosed no significant changes. INTERPRETATION: This EEG shows predominantly asleep features without any distinct abnormality. Clinical correlation. Specifically, no epileptiform features present. Faraz Lantigua MD [facility] /4:57 PM /5:04 PM
[2017-03-24] MEDS ORDERED: ACETAMINOPHEN 1000 MG/100 ML VIAL IV ONE (17:30)
[2017-03-24] MEDS ORDERED: DEXTROSE 50% IN WATER 50 ML VIAL(D50) IV PRN (20:00)
[2017-03-24] MEDS ORDERED: GLUCAGON 1 MG/ML VIAL OTHER PRN (20:00)
[2017-03-24] MEDS ORDERED: methylPREDNISolone SOD SUCC 125 MG/2 ML VIAL IV PUSH ONE (20:15)
[2017-03-24] MEDS: INSULIN ASPART SUPPLEMENTAL SCALE SQ SCH (21:00)
[2017-03-25] VITALS (9 sets, daily range): BP systolic 135–170; BP diastolic 80–114; PULSE 68–92; RESP 18–20; TEMP 97.7–98.8; O2SAT 93–98
[2017-03-25] MEDS: SODIUM CHLOR 0.9% 1000 ML INJ 1,000 ML IV SCH ×2 (02:38→14:33)
[2017-03-25] MEDS: CHLORHEXIDINE GLUCONATE 2 % 1 PACK (2 CLOTHS) TOP SCH (04:00)
[2017-03-25 04:36] LABS: HEMATOCRIT 38.2 % (39.0-51.0); MEAN CELL VOLUME 96.2 FL (80.0-100.0); MEAN CORPUSCULAR HEMOGLOBIN 31.8 PG (27.0-34.0); MEAN CORPUSCULAR HGB CONC 33.1 % (32.0-36.0); PLATELET COUNT 176 TH/MM3 (150-450); RED BLOOD COUNT 3.97 MIL/MM3 (4.50-5.90); RED CELL DISTRIBUTION WIDTH 12.7 % (11.6-17.2); REVIEW FLAG FINAL; WHITE BLOOD COUNT 9.1 TH/MM3 (4.0-11.0)
[2017-03-25 04:55] LABS: POTASSIUM 3.8 MEQ/L (3.5-5.1)
[2017-03-25] MEDS: PHENYTOIN INJ 100 MG/2 ML VIAL IV SCH ×3 (05:34→20:47)
[2017-03-25] MEDS: methylPREDNISolone SOD SUCC 125 MG/2 ML VIAL IV PUSH SCH ×3 (05:34→18:11)
[2017-03-25] MEDS: INSULIN ASPART SUPPLEMENTAL SCALE SQ SCH ×4 (06:03→21:09)
[2017-03-25] MEDS: PANTOPRAZOLE SODIUM 40 MG VIAL IV SCH (07:58)
[2017-03-25] MEDS: DOCUSATE SODIUM 50 MG/SENNA 8.6 MG TAB PO SCH ×2 (08:04→20:49)
[2017-03-25] MEDS: ACETAMINOPHEN 325 MG TAB PO PRN ×2 (08:09→16:26)
[2017-03-25] MEDS ORDERED: MORPHINE SULFATE 4 MG/ML INJ IV ONE (12:30)
[2017-03-25] MEDS: LISINOPRIL 5 MG TAB PO SCH ×2 (12:41→20:46)
--- NOTE | 2017-03-25 17:18 | HHI.PR ---
Subjective Remarks patient looks in distress due to severe pain ,complaining of back pain he is asking for pain medication No chest pain or short of breath no headache, no fever blood pressure in the 170/114 I will add lisinopril Objective Vitals Vital Signs Date Time Temp Pulse Resp B/P Pulse Ox O2 Delivery O2 Flow Rate FiO2 03/25/17 15:46 98.2 91 20 141/85 95 03/25/17 12:03 98.5 89 20 166/96 93 03/25/17 09:33 98.8 87 20 170/114 97 03/25/17 08:00 98.0 83 20 169/104 95 Arterial Line 03/25/17 08:00 83 03/25/17 06:00 89 03/25/17 04:00 92 03/25/17 04:00 98.0 92 18 160/80 96 03/25/17 02:00 80 03/25/17 00:00 85 03/25/17 00:00 84 20 98 03/24/17 22:00 86 03/24/17 20:00 85 03/24/17 20:00 98.2 85 18 128/75 96 03/24/17 19:50 95 21 03/24/17 18:00 92 I/O 03/24/17 03/24/17 03/24/17 03/25/17 03/25/17 03/25/17 07:00 15:00 23:00 07:00 15:00 23:00 Intake Total 1325 ml 517 ml 1943 ml 1238 ml 480 ml Output Total 2500 ml 1100 ml 550 ml 650 ml Balance -1175 ml -583 ml 1393 ml 588 ml 480 ml Intake Oral 450 ml 640 ml 480 ml IV Total 1325 ml 517 ml 1493 ml 598 ml Output Urine Total 2500 ml 1100 ml 550 ml 650 ml # Bowel Movements 0 0 Result Diagram: 03/25/1742103/25/17421 Objective Remarks GENERAL: This is a well-nourished, well-developed patient, in no apparent distress. CARDIOVASCULAR: Regular rate and rhythm without murmurs, gallops, or rubs. RESPIRATORY: Clear to auscultation. Breath sounds equal bilaterally. No wheezes , rales, or rhonchi. GASTROINTESTINAL: Abdomen soft, non-tender, nondistended. Normal active bowel sounds MUSCULOSKELETAL: Extremities without clubbing, cyanosis, or edema. NEURO: Alert & Oriented x4 to person, place, time, situation. Moves all ext x4 Date of Insertion: Mar 22, 2017 A/P Assessment and Plan 03/25: Blood pressure still uncontrolled>> Add lisinopril EEG unremarkable, neuro following Continue monitoring ICU A/P Acute hypoxemic Respiratory failure -status post intubation Status epilepticus -03/22Loaded with Dilantin - Continue Dilantin scheduled - Further management per neurology - IV fluids normal saline at 125/hour -GCS 11 T -Neurology following Hypokalemia - Electrolyte replacement per ICU protocol Polysubstance abuse - Positive for cocaine marijuana - Monitor for withdrawal - Benzodiazepines when necessary Hypertensive crisis- -Norvasc 10 mg daily -Nicardipine discontinued -Maintain systolic blood pressure less than 160 DVT GI prophylaxis - Teds SCDs - Subcutaneous heparin - Drake Beebe MD Mar 25, 2017 17:18
[2017-03-25] MEDS: MORPHINE SULFATE 4 MG/ML INJ IV PRN (18:14)
[2017-03-26] VITALS (8 sets, daily range): BP systolic 139–183; BP diastolic 85–108; PULSE 76–95; RESP 18–20; TEMP 96.3–98.5; O2SAT 93–97
[2017-03-26] MEDS: MORPHINE SULFATE 4 MG/ML INJ IV PRN ×5 (00:19→23:35)
[2017-03-26] MEDS: methylPREDNISolone SOD SUCC 125 MG/2 ML VIAL IV PUSH SCH ×4 (00:19→17:57)
[2017-03-26] MEDS: SODIUM CHLOR 0.9% 1000 ML INJ 1,000 ML IV SCH ×2 (00:27→14:23)
[2017-03-26] MEDS: CHLORHEXIDINE GLUCONATE 2 % 1 PACK (2 CLOTHS) TOP SCH (00:27)
[2017-03-26] MEDS: PHENYTOIN INJ 100 MG/2 ML VIAL IV SCH ×3 (05:53→21:11)
[2017-03-26] MEDS: INSULIN ASPART SUPPLEMENTAL SCALE SQ SCH ×4 (05:54→21:00)
[2017-03-26] MEDS: DOCUSATE SODIUM 50 MG/SENNA 8.6 MG TAB PO SCH ×2 (08:31→21:10)
[2017-03-26] MEDS: ACETAMINOPHEN 325 MG TAB PO PRN ×2 (08:45→21:11)
[2017-03-26] MEDS: LISINOPRIL 5 MG TAB PO SCH (08:45)
[2017-03-26] MEDS: PANTOPRAZOLE SODIUM 40 MG VIAL IV SCH (08:46)
[2017-03-26] MEDS ORDERED: LISI-519 PO (11:19)
[2017-03-26] MEDS ORDERED: [UNRECOGNIZED DRUG - CODE] IV (11:19)
[2017-03-26] MEDS ORDERED: AMLO10 PO (11:19)
[2017-03-26] MEDS ORDERED: MEDR4PAK PO (11:19)
[2017-03-26] MEDS: hydrALAZINE HCL 25 MG TAB PO SCH ×2 (12:30→21:09)
[2017-03-26] MEDS ORDERED: methylPREDNISolone SOD SUCC 125 MG/2 ML VIAL IV PUSH SCH (14:00)
--- NOTE | 2017-03-26 16:04 | HHI.PR ---
Subjective Remarks Patient still complaining of severe lower back pain which is getting more concerning now with his history of IVDA Also his lip got swollen today she had when he was admitted as well his on Solu- Medrol, patient yesterday started on lisinopril could probably participated so we'll stop lisinopril and had it with ROSENDA inhibitor to allergy list No fever or chills Objective Vitals Vital Signs Date Time Temp Pulse Resp B/P Pulse Ox O2 Delivery O2 Flow Rate FiO2 03/26/17 12:00 98.1 95 18 161/92 95 03/26/17 09:56 16 03/26/17 08:05 76 03/26/17 08:05 94 Room Air 03/26/17 08:00 98.3 84 18 169/104 94 03/26/17 04:00 97.1 85 20 139/85 95 03/26/17 04:00 Room Air 03/26/17 00:00 96.3 81 20 145/95 93 03/26/17 00:00 Room Air 03/25/17 20:40 97.7 68 20 135/80 94 03/25/17 20:00 Room Air 03/25/17 18:19 19 I/O 03/25/17 03/25/17 03/25/17 03/26/17 03/26/17 03/26/17 07:00 15:00 23:00 07:00 15:00 23:00 Intake Total 1238 ml 480 ml 723 ml 357 ml Output Total 650 ml 300 ml 1600 ml 800 ml Balance 588 ml 480 ml 423 ml -1243 ml -800 ml Intake Oral 640 ml 480 ml 500 ml IV Total 598 ml 223 ml 357 ml Output Urine Total 650 ml 300 ml 1600 ml 800 ml # Voids 2 # Bowel Movements 0 0 1 Result Diagram: 03/25/17 0422 03/25/17 0422 Objective Remarks GENERAL: This is a well-nourished, well-developed patient, in no apparent distress. CARDIOVASCULAR: Regular rate and rhythm without murmurs, gallops, or rubs. RESPIRATORY: Clear to auscultation. Breath sounds equal bilaterally. No wheezes , rales, or rhonchi. GASTROINTESTINAL: Abdomen soft, non-tender, nondistended. Normal active bowel sounds MUSCULOSKELETAL: Extremities without clubbing, cyanosis, or edema. NEURO: Alert & Oriented x4 to person, place, time, situation. Moves all ext x4 Date of Insertion: Mar 22, 2017 A/P Assessment and Plan 03/25: Blood pressure still uncontrolled>> Add lisinopril EEG unremarkable, neuro following Continue monitoring 03/26: Angioedema with swollen lip, continue Solu-Medrol, stop lisinopril and added to allergy medicine, discussed with the nurse monitored closely for any respiratory compromise Persistent severe back pain, unable to tell if it's drug seeking behavior versus real pain, with his history of IVDA will need to rule out any underlying pathology such as subdural abscess, will do CT scan of the lumbar spine ICU A/P Acute hypoxemic Respiratory failure -status post intubation Status epilepticus -03/22Loaded with Dilantin - Continue Dilantin scheduled - Further management per neurology - IV fluids normal saline at 125/hour -GCS 11 T -Neurology following Hypokalemia - Electrolyte replacement per ICU protocol Polysubstance abuse - Positive for cocaine marijuana - Monitor for withdrawal - Benzodiazepines when necessary Hypertensive crisis- -Norvasc 10 mg daily -Nicardipine discontinued -Maintain systolic blood pressure less than 160 DVT GI prophylaxis - Teds SCDs - Subcutaneous heparin - Drake Beebe MD Mar 26, 2017 16:04
[2017-03-26] MEDS ORDERED: IOHEXOL 350 MG/ML 10 ML VIAL (for RAD DIAG) IV ONE (16:06)
--- NOTE | 2017-03-26 17:33 | RADRPT ---
EXAM DATE/TIME: 03/26/2017 15:57 [facility] COMPARISON: No previous studies available for comparison. INDICATIONS : Evaluate for abscess, IV drugabuser, back pain. IV CONTRAST: 100 cc Omnipaque 350 (iohexol) IV RADIATION DOSE: 40.58 CTDIvol (mGy) MEDICAL HISTORY : None SURGICAL HISTORY : None. ENCOUNTER: Initial ACUITY: 1 day PAIN SCALE: 5/10 LOCATION: Low back TECHNIQUE: Volumetric scanning of the lumbar spine was performed. Multiplanar reconstructions in the sagittal, coronal and oblique axial planes were performed. Using automated exposure control and adjustment of the mA and/or kV according to patient size, radiation dose was kept as low as reasonably achievable t o obtain optimal diagnostic quality images. DICOM format image data is available electronically for review and comparison. FINDINGS: CONUS MEDULLARIS: Normal. PARASPINAL SOFT TISSUES: Normal. LUMBAR CORD: Normal. DURAL SAC: Normal. L1-L2: The disc, uncovertebral joints, central canal, foramina, and facets are normal. L2-L3: The disc, uncovertebral joints, central canal, foramina, and facets are normal. L3-L4: The disc, uncovertebral joints, central canal, foramina, and facets are normal. L4-L5: The disc, uncovertebral joints, central canal, foramina, and facets are normal. L5-S1: The disc, uncovertebral joints, central canal, foramina, and facets are normal. CONCLUSION: Normal examination for a patient of this age. Santos Mathews MD on March 26, 2017 at 17:28 Board Certified Radiologist. This report was verified electronically.
[2017-03-27] VITALS (10 sets, daily range): BP systolic 108–176; BP diastolic 75–109; PULSE 64–90; RESP 18–20; TEMP 98–98.8; O2SAT 94–99
[2017-03-27] MEDS: methylPREDNISolone SOD SUCC 125 MG/2 ML VIAL IV PUSH SCH ×4 (01:16→17:33)
[2017-03-27] MEDS: SODIUM CHLOR 0.9% 1000 ML INJ 1,000 ML IV SCH ×2 (01:17→14:13)
[2017-03-27] MEDS: CHLORHEXIDINE GLUCONATE 2 % 1 PACK (2 CLOTHS) TOP SCH (04:00)
[2017-03-27] MEDS: ACETAMINOPHEN 325 MG TAB PO PRN ×3 (04:57→20:27)
[2017-03-27] MEDS: INSULIN ASPART SUPPLEMENTAL SCALE SQ SCH ×4 (07:00→20:34)
[2017-03-27] MEDS: PHENYTOIN SODIUM 100 MG CAP PO SCH ×3 (07:14→20:26)
[2017-03-27] MEDS: DOCUSATE SODIUM 50 MG/SENNA 8.6 MG TAB PO SCH ×2 (09:00→20:35)
[2017-03-27] MEDS: hydrALAZINE HCL 25 MG TAB PO SCH ×2 (09:24→20:27)
[2017-03-27] MEDS: PANTOPRAZOLE SODIUM 40 MG VIAL IV SCH (09:24)
[2017-03-27] MEDS: MORPHINE SULFATE 4 MG/ML INJ IV PRN (09:37)
--- NOTE | 2017-03-27 12:14 | HHI.PR ---
Review/Management Daily Summary 03/24 sedation beling reduced awakened partially to my exam 2 hrs ago followed simple commands and moveb all 4 limbs will review eeg and check dph level 03/27 no seizures alert and oriented asks appropriate questions moves limbs well continue dph as is pt for gait outpt neuro 2 weeks after d/c Subjective Subjective Comments No acute events reported No headache No chest pain No dyspnea Active Medications Current Medications Medications (Trade) Dose Ordered Sig/Hillary Route Start Time Stop Time Status Last Admin (NS 1000 ml Inj) 1,000 ml @ 84 mls/hr [id number] IV 03/22/17 18:00 03/27/17 01:17 (Tylenol) 650 mg Q6H PRN PO 03/22/17 17:30 03/27/17 04:57 (Protonix Inj) 40 mg DAILY IV 03/22/17 18:30 03/27/17 09:24 (Zofran Inj) 4 mg Q6H PRN IV 03/22/17 17:30 03/26/17 14:19 Miscellaneous Information 1 [id number] XX 03/22/17 17:30 (Chlorhexidine 2% Cloth) 3 pack Taper DAILY@04 TOP 03/23/17 04:00 03/19/18 03:59 03/25/17 04:00 (Chlorhexidine 2% Cloth) 3 pack UNSCH PRN TOP 03/22/17 17:30 (Bruna-Colace) 1 tab BID PO 03/22/17 21:00 03/26/17 21:10 (Milk Of Magnesia Liq) 30 ml Q12H PRN PO 03/22/17 17:30 (Senokot) 17.2 mg Q12H PRN PO 03/22/17 17:30 (Dulcolax Supp) 10 mg DAILY PRN RECTAL 03/22/17 17:30 (Lactulose Liq) 30 ml DAILY PRN PO 03/22/17 17:30 (Ativan Inj) 1 mg Q15M PRN IV PUSH 03/22/17 17:45 03/24/17 14:03 (Norvasc) 10 mg DAILY PO 03/24/17 09:00 03/27/17 09:23 (D50w (Vial) Inj) 50 ml UNSCH PRN IV 03/24/17 20:00 (Glucagon Inj) 1 mg UNSCH PRN OTHER 03/24/17 20:00 (Morphine Inj) 2 mg Q6H PRN IV 03/25/17 17:30 03/27/17 09:37 (SoluMEDROL INJ) 60 mg Q6H IV PUSH 03/26/17 13:00 03/27/17 07:14 (Apresoline) 25 mg Q12HR PO 03/26/17 12:30 03/27/17 09:24 (Dilantin) 100 mg Q8HR PO 03/27/17 06:50 03/27/17 07:14 Allergies Allergies Coded Allergies Lisinopril (Verified Allergy, Severe, angioedema, 03/26/17) Exam I&O / VS 03/26/17 03/26/17 03/27/17 15:00 23:00 07:00 Intake Total 480 ml 855 ml 1008 ml Output Total 800 ml 925 ml 2956 ml Balance -320 ml -70 ml -1948 ml Intake Oral 480 ml 240 ml IV Total 615 ml 1008 ml Output Urine Total 800 ml 925 ml 2955 ml Stool Total 1 ml # Voids 2 # Bowel Movements 2 1 Vital Signs Date Time Temp Pulse Resp B/P Pulse Ox O2 Delivery O2 Flow Rate FiO2 03/27/17 11:39 98.0 89 20 108/86 95 Manual Cuff/Auscultation 03/27/17 09:15 75 03/27/17 08:00 98.2 83 20 176/106 99 03/27/17 04:27 158/102 03/27/17 04:00 98.0 90 20 156/75 96 03/27/17 02:25 154/98 03/27/17 01:16 80 03/27/17 00:00 98.3 77 20 166/109 95 03/26/17 23:14 Room Air 03/26/17 20:00 98.5 76 20 150/106 97 03/26/17 18:40 162/90 03/26/17 16:00 98.4 83 18 183/108 95 Objective Micro and Labs Date/Time Procedure Status Source Growth 03/23/17 11:55 Aerobic Blood Culture - Preliminary Resulted Blood Peripheral NO GROWTH IN 4 DAYS 03/23/17 11:55 Anaerobic Blood Culture - Preliminary Resulted Blood Peripheral NO GROWTH IN 4 DAYS Gilson Lantigua MD Mar 27, 2017 12:14
--- NOTE | 2017-03-27 12:18 | HHI.PR ---
Subjective Remarks The upper lip still swollen but slightly better than before we'll continue on iv Solu-Medrol, no respiratory compromise CT of the lumbar spine came back negative most likely we can discharge patient on tapering prednisone once the lip swelling improved Objective Vitals Vital Signs Date Time Temp Pulse Resp B/P Pulse Ox O2 Delivery O2 Flow Rate FiO2 03/27/17 11:39 98.0 89 20 108/86 95 Manual Cuff/Auscultation 03/27/17 09:15 75 03/27/17 08:00 98.2 83 20 176/106 99 03/27/17 04:27 158/102 03/27/17 04:00 98.0 90 20 156/75 96 03/27/17 02:25 154/98 03/27/17 01:16 80 03/27/17 00:00 98.3 77 20 166/109 95 03/26/17 23:14 Room Air 03/26/17 20:00 98.5 76 20 150/106 97 03/26/17 18:40 162/90 03/26/17 16:00 98.4 83 18 183/108 95 I/O 03/26/17 03/26/17 03/26/17 03/27/17 03/27/17 03/27/17 07:00 15:00 23:00 07:00 15:00 23:00 Intake Total 357 ml 480 ml 855 ml 1008 ml 992 ml Output Total 1600 ml 800 ml 925 ml 2956 ml 935 ml Balance -1243 ml -320 ml -70 ml -1948 ml 57 ml Intake Oral 480 ml 240 ml IV Total 357 ml 615 ml 1008 ml 992 ml Output Urine Total 1600 ml 800 ml 925 ml 2955 ml 935 ml Stool Total 1 ml # Voids 2 2 # Bowel Movements 1 2 1 Result Diagram: 03/25/17 0422 03/25/17 0422 Objective Remarks GENERAL: This is a well-nourished, well-developed patient, in no apparent distress. CARDIOVASCULAR: Regular rate and rhythm without murmurs, gallops, or rubs. RESPIRATORY: Clear to auscultation. Breath sounds equal bilaterally. No wheezes , rales, or rhonchi. GASTROINTESTINAL: Abdomen soft, non-tender, nondistended. Normal active bowel sounds MUSCULOSKELETAL: Extremities without clubbing, cyanosis, or edema. NEURO: Alert & Oriented x4 to person, place, time, situation. Moves all ext x4 Date of Insertion: Mar 22, 2017 A/P Assessment and Plan 03/25: Blood pressure still uncontrolled>> Add lisinopril EEG unremarkable, neuro following Continue monitoring 03/27: Lumbar CT came back negative Upper lip still swollen, will continue Solu-Medrol iv No ROSENDA inhibitor or lisinopril Hopefully discharge in a.m. if lip improved ICU A/P Acute hypoxemic Respiratory failure -status post intubation Status epilepticus -03/22Loaded with Dilantin - Continue Dilantin scheduled - Further management per neurology - IV fluids normal saline at 125/hour -GCS 11 T -Neurology following Hypokalemia - Electrolyte replacement per ICU protocol Polysubstance abuse - Positive for cocaine marijuana - Monitor for withdrawal - Benzodiazepines when necessary Hypertensive crisis- -Norvasc 10 mg daily -Nicardipine discontinued -Maintain systolic blood pressure less than 160 DVT GI prophylaxis - Teds SCDs - Subcutaneous heparin - Drake Beebe MD Mar 27, 2017 12:18
[2017-03-28] VITALS (8 sets, daily range): BP systolic 123–175; BP diastolic 84–95; PULSE 56–77; RESP 16–20; TEMP 97.6–98.9; O2SAT 93–98
[2017-03-28] MEDS: methylPREDNISolone SOD SUCC 125 MG/2 ML VIAL IV PUSH SCH ×4 (00:25→21:12)
[2017-03-28] MEDS: MORPHINE SULFATE 4 MG/ML INJ IV PRN ×2 (00:25→21:22)
[2017-03-28] MEDS: CHLORHEXIDINE GLUCONATE 2 % 1 PACK (2 CLOTHS) TOP SCH ×2 (04:00→22:55)
[2017-03-28] MEDS: PHENYTOIN SODIUM 100 MG CAP PO SCH ×3 (06:00→21:12)
[2017-03-28] MEDS: INSULIN ASPART SUPPLEMENTAL SCALE SQ SCH ×4 (06:17→21:00)
[2017-03-28] MEDS: SODIUM CHLOR 0.9% 1000 ML INJ 1,000 ML IV SCH ×2 (06:17→19:04)
[2017-03-28] MEDS: DOCUSATE SODIUM 50 MG/SENNA 8.6 MG TAB PO SCH ×2 (09:11→21:12)
[2017-03-28] MEDS: hydrALAZINE HCL 25 MG TAB PO SCH ×2 (09:11→21:12)
[2017-03-28] MEDS: PANTOPRAZOLE SODIUM 40 MG VIAL IV SCH (09:12)
[2017-03-28] MEDS: ACETAMINOPHEN 325 MG TAB PO PRN ×2 (09:36→19:49)
--- NOTE | 2017-03-28 14:39 | HHI.PR ---
Subjective Remarks Upper lip still swollen with a cough about 1 cm looks like it has a bulla No fever or chills no respiratory compromise To complain of back pain but I am not convinced because every time ago into the room he is sleeping Objective Vitals Vital Signs Date Time Temp Pulse Resp B/P Pulse Ox O2 Delivery O2 Flow Rate FiO2 03/28/17 11:52 98.3 77 18 123/84 93 03/28/17 09:22 59 03/28/17 09:21 Room Air 03/28/17 07:57 97.6 56 16 145/95 94 03/28/17 06:58 98.3 72 18 149/92 96 03/28/17 01:00 Room Air 03/28/17 00:00 98.1 64 20 175/93 96 03/27/17 20:00 98.0 72 20 146/93 94 03/27/17 16:00 98.8 64 18 174/102 96 I/O 03/27/17 03/27/17 03/27/17 03/28/17 03/28/17 03/28/17 07:00 15:00 23:00 07:00 15:00 23:00 Intake Total 1008 ml 992 ml 1056 ml 960 ml Output Total 2956 ml 935 ml 1515 ml 1600 ml Balance -1948 ml 57 ml -1515 ml 1056 ml -640 ml Intake Oral 48 ml 960 ml IV Total 1008 ml 992 ml 1008 ml Output Urine Total 2955 ml 935 ml 1515 ml 1600 ml Stool Total 1 ml # Voids 6 # Bowel Movements 1 1 2 Result Diagram: 03/25/17 0422 03/25/17 0422 Objective Remarks - GENERAL: This is a well-nourished, well-developed patient, in no apparent distress. CARDIOVASCULAR: Regular rate and rhythm without murmurs, gallops, or rubs. RESPIRATORY: Clear to auscultation. Breath sounds equal bilaterally. No wheezes , rales, or rhonchi. GASTROINTESTINAL: Abdomen soft, non-tender, nondistended. Normal active bowel sounds MUSCULOSKELETAL: Extremities without clubbing, cyanosis, or edema. NEURO: Alert & Oriented x4 to person, place, time, situation. Moves all ext x4 Oral cavity: Upper lip swollen with what it looks like a bulla, and cut about 1 cm Date of Insertion: Mar 22, 2017 A/P Assessment and Plan 03/25: Blood pressure still uncontrolled>> Add lisinopril EEG unremarkable, neuro following Continue monitoring 03/27: Lumbar CT came back negative Upper lip still swollen, will continue Solu-Medrol iv No ROSENDA inhibitor or lisinopril Hopefully discharge in a.m. if lip improved 03/28: Still having upper lip swelling, now painful with a bulla , also little cut about 1 cm>> unlikely related to Ric Juma since skin and oral cavity looks normal, mostly angioedema with possible infection due to the skin, continue solumedrol , loratedine ICU A/P Acute hypoxemic Respiratory failure -status post intubation Status epilepticus -03/22Loaded with Dilantin - Continue Dilantin scheduled - Further management per neurology - IV fluids normal saline at 125/hour -GCS 11 T -Neurology following Hypokalemia - Electrolyte replacement per ICU protocol Polysubstance abuse - Positive for cocaine marijuana - Monitor for withdrawal - Benzodiazepines when necessary Hypertensive crisis- -Norvasc 10 mg daily -Nicardipine discontinued -Maintain systolic blood pressure less than 160 DVT GI prophylaxis - Teds SCDs - Subcutaneous heparin - Drake Beebe MD Mar 28, 2017 14:39
[2017-03-28] MEDS: diphenhydrAMINE HCL 50 MG/ML VIAL IV PUSH SCH ×2 (16:29→21:12)
[2017-03-28 16:54] LABS: AUTOMATED NEUTROPHIL # 13.4 TH/MM3 (1.8-7.7); BASOPHIL % 0.1 % (0.0-2.0); HEMO FLAGS DIFF FINAL; LYMPH % 3.8 % (9.0-44.0); LYMPHOCYTE # 0.6 TH/MM3 (1.0-4.8); MEAN CELL VOLUME 97.1 FL (80.0-100.0); MEAN CORPUSCULAR HEMOGLOBIN 31.1 PG (27.0-34.0); MONO % 8.5 % (0.0-8.0); NEUT % 87.6 % (16.0-70.0); PLATELET COUNT 248 TH/MM3 (150-450); RED BLOOD COUNT 4.02 MIL/MM3 (4.50-5.90); RED CELL DISTRIBUTION WIDTH 12.5 % (11.6-17.2); WHITE BLOOD COUNT 15.3 TH/MM3 (4.0-11.0)
[2017-03-28 17:17] LABS: BICARBONATE 28.7 MEQ/L (21.0-32.0); POTASSIUM 4.1 MEQ/L (3.5-5.1)
[2017-03-28] MEDS ORDERED: MUPIROCIN 2% OINT 22 GM TUBE TOPICAL PRN (17:45)
[2017-03-29] VITALS (7 sets, daily range): BP systolic 134–188; BP diastolic 69–118; PULSE 56–96; RESP 18–20; TEMP 97.8–99.5; O2SAT 92–98
[2017-03-29] MEDS: SODIUM CHLOR 0.9% 1000 ML INJ 1,000 ML IV SCH ×3 (00:27→17:15)
[2017-03-29] MEDS: diphenhydrAMINE HCL 50 MG/ML VIAL IV PUSH SCH ×2 (04:12→09:32)
[2017-03-29] MEDS: methylPREDNISolone SOD SUCC 125 MG/2 ML VIAL IV PUSH SCH ×3 (04:12→21:29)
[2017-03-29] MEDS: PHENYTOIN SODIUM 100 MG CAP PO SCH ×2 (05:51→13:52)
[2017-03-29] MEDS: MUPIROCIN 2% OINT 22 GM TUBE TOPICAL SCH ×3 (05:51→21:31)
[2017-03-29] MEDS: INSULIN ASPART SUPPLEMENTAL SCALE SQ SCH ×4 (06:13→21:00)
[2017-03-29 07:36] LABS: BICARBONATE 26.2 MEQ/L (21.0-32.0); POTASSIUM 4.1 MEQ/L (3.5-5.1)
[2017-03-29 07:38] LABS: AUTOMATED NEUTROPHIL # 9.9 TH/MM3 (1.8-7.7); HEMATOCRIT 37.1 % (39.0-51.0); HEMO FLAGS DIFF FINAL; LYMPH % 7.9 % (9.0-44.0); LYMPHOCYTE # 0.9 TH/MM3 (1.0-4.8); MEAN CELL VOLUME 96.9 FL (80.0-100.0); MEAN CORPUSCULAR HEMOGLOBIN 31.5 PG (27.0-34.0); MEAN CORPUSCULAR HGB CONC 32.5 % (32.0-36.0); MONO % 8.5 % (0.0-8.0); NEUT % 83.6 % (16.0-70.0); PLATELET COUNT 239 TH/MM3 (150-450); RED BLOOD COUNT 3.83 MIL/MM3 (4.50-5.90); RED CELL DISTRIBUTION WIDTH 12.5 % (11.6-17.2); WHITE BLOOD COUNT 11.9 TH/MM3 (4.0-11.0)
[2017-03-29] MEDS: hydrALAZINE HCL 25 MG TAB PO SCH ×2 (08:05→21:29)
[2017-03-29] MEDS: DOCUSATE SODIUM 50 MG/SENNA 8.6 MG TAB PO SCH ×2 (08:06→21:00)
[2017-03-29] MEDS: PANTOPRAZOLE SODIUM 40 MG VIAL IV SCH (08:06)
[2017-03-29] MEDS: MORPHINE SULFATE 4 MG/ML INJ IV PRN ×2 (09:32→17:15)
[2017-03-29] MEDS ORDERED: WALKER WHEELS/F1 MIS (15:05)
[2017-03-29] MEDS ORDERED: CLAR10CA3 PO (15:07)
[2017-03-29] MEDS ORDERED: HYDR-3801 PO (15:10)
[2017-03-29] MEDS ORDERED: EPIP0.3I IM (15:43)
--- NOTE | 2017-03-29 16:56 | HHI.PR ---
Subjective Remarks Patient still feeling very tender in his upper lip which is still swollen but showing a bullae, he told me it extended to his gum, I tried to look despite he is not able to open widely, looks like a whitish papule on the front upper gum No fever or chills him in initially plan to discharge patient however after discussing with Dr. Lewis the neurologist over the phone, he agreed with stopping Dilantin, starting on Keppra iv then by mouth and monitor under telemetric Objective Vitals Vital Signs Date Time Temp Pulse Resp B/P Pulse Ox O2 Delivery O2 Flow Rate FiO2 03/29/17 11:44 98.1 79 18 136/69 95 03/29/17 08:26 56 03/29/17 08:10 Room Air 03/29/17 07:49 97.8 66 18 166/97 98 03/29/17 06:12 98.5 60 20 138/93 98 03/29/17 00:00 97.8 65 20 134/84 98 03/28/17 20:00 97.8 65 20 135/85 98 03/28/17 20:00 Room Air 03/28/17 17:58 75 I/O 03/28/17 03/28/17 03/28/17 03/29/17 03/29/17 03/29/17 07:00 15:00 23:00 07:00 15:00 23:00 Intake Total 1056 ml 960 ml 133 ml 1119 ml Output Total 1600 ml 800 ml 825 ml 500 ml Balance 1056 ml -640 ml -667 ml 294 ml -500 ml Intake Oral 48 ml 960 ml IV Total 1008 ml 133 ml 1119 ml Output Urine Total 1600 ml 800 ml 825 ml 500 ml # Bowel Movements 2 1 0 Result Diagram: 03/29/1761203/29/1713 Objective Remarks - GENERAL: This is a well-nourished, well-developed patient, in no apparent distress. CARDIOVASCULAR: Regular rate and rhythm without murmurs, gallops, or rubs. RESPIRATORY: Clear to auscultation. Breath sounds equal bilaterally. No wheezes , rales, or rhonchi. GASTROINTESTINAL: Abdomen soft, non-tender, nondistended. Normal active bowel sounds MUSCULOSKELETAL: Extremities without clubbing, cyanosis, or edema. NEURO: Alert & Oriented x4 to person, place, time, situation. Moves all ext x4 Oral cavity: Upper lip swollen with what it looks like a bulla, and cut about 1 cm Date of Insertion: Mar 22, 2017 A/P Assessment and Plan 03/25: Blood pressure still uncontrolled>> Add lisinopril EEG unremarkable, neuro following Continue monitoring 03/27: Lumbar CT came back negative Upper lip still swollen, will continue Solu-Medrol iv No ROSENDA inhibitor or lisinopril Hopefully discharge in a.m. if lip improved 03/28: Still having upper lip swelling, now painful with a bulla , also little cut about 1 cm>> unlikely related to Ric Juma since skin and oral cavity looks normal, mostly angioedema with possible infection due to the skin, continue solumedrol , loratedine 03/29: Upper lip still not improving, now extending to the upper gum ? Dilantin side effect , discussed with Dr. Lewis over the phone extensively, agreed with stopping Dilantin, starting loading dose of Keppra thousand milligram once and resuming with by mouth tomorrow, continue under telemetry with seizure precaution, continue Solu-Medrol and loratadine, monitor ICU A/P Acute hypoxemic Respiratory failure -status post intubation Status epilepticus -03/22Loaded with Dilantin - Continue Dilantin scheduled - Further management per neurology - IV fluids normal saline at 125/hour -GCS 11 T -Neurology following Hypokalemia - Electrolyte replacement per ICU protocol Polysubstance abuse - Positive for cocaine marijuana - Monitor for withdrawal - Benzodiazepines when necessary Hypertensive crisis- -Norvasc 10 mg daily -Nicardipine discontinued -Maintain systolic blood pressure less than 160 DVT GI prophylaxis - Teds SCDs - Subcutaneous heparin - Drake Beebe MD Mar 29, 2017 16:56
[2017-03-29] MEDS ORDERED: levETIRAcetam 1000 MG INJ 100 ML IV ONE (17:00)
--- NOTE | 2017-03-29 20:48 | HHI.PR ---
Subjective Remarks i was called to see pt by med team for swollen arm and gums Objective Vital Signs Date Time Temp Pulse Resp B/P Pulse Ox O2 Delivery O2 Flow Rate FiO2 03/29/17 17:14 99.5 77 18 158/107 96 03/29/17 11:44 98.1 79 18 136/69 95 03/29/17 08:26 56 03/29/17 08:10 Room Air 03/29/17 07:49 97.8 66 18 166/97 98 03/29/17 06:12 98.5 60 20 138/93 98 03/29/17 00:00 97.8 65 20 134/84 98 I/O 03/28/17 03/28/17 03/28/17 03/29/17 03/29/17 03/29/17 07:00 15:00 23:00 07:00 15:00 23:00 Intake Total 1056 ml 960 ml 133 ml 1119 ml 899 ml Output Total 1600 ml 800 ml 825 ml 500 ml 450 ml Balance 1056 ml -640 ml -667 ml 294 ml -500 ml 449 ml Intake Oral 48 ml 960 ml IV Total 1008 ml 133 ml 1119 ml 899 ml Output Urine Total 1600 ml 800 ml 825 ml 500 ml 450 ml # Bowel Movements 2 1 0 Result Diagram: 03/29/1713 03/29/17612 Objective Remarks arms not swollen upper lip is he has abrasion left elbow and upper lip there is a whitish green discoloration of the upper gingival region no edema Assessment and Plan Assessment and Plan imp the lip edema could be from dil and it has been changed to keppra eeg neg and i suspect sz from cocaine the gum change looks like possible bacterial infection and unclear if he hit his upper lip on street with sz not seen in notes prior consider id or dental to look at gum area check mri with sz dc cocaine Junior Lewis MD Mar 29, 2017 20:48
[2017-03-30] VITALS (7 sets, daily range): BP systolic 136–164; BP diastolic 80–103; PULSE 68–80; RESP 17–20; TEMP 97.6–98.4; O2SAT 93–98
[2017-03-30] MEDS: MORPHINE SULFATE 4 MG/ML INJ IV PRN ×2 (03:56→17:47)
[2017-03-30] MEDS: CHLORHEXIDINE GLUCONATE 2 % 1 PACK (2 CLOTHS) TOP SCH (04:00)
[2017-03-30] MEDS: methylPREDNISolone SOD SUCC 125 MG/2 ML VIAL IV PUSH SCH ×3 (05:35→20:52)
[2017-03-30] MEDS: SODIUM CHLOR 0.9% 1000 ML INJ 1,000 ML IV SCH ×2 (05:36→23:03)
[2017-03-30] MEDS: INSULIN ASPART SUPPLEMENTAL SCALE SQ SCH ×4 (07:00→20:53)
[2017-03-30] MEDS: MUPIROCIN 2% OINT 22 GM TUBE TOPICAL SCH ×3 (07:15→23:02)
--- NOTE | 2017-03-30 07:34 | HHI.PR ---
Subjective Remarks i was called to see pt by med team for swollen arm and gums Objective Vital Signs Date Time Temp Pulse Resp B/P Pulse Ox O2 Delivery O2 Flow Rate FiO2 03/30/17 04:00 98.0 68 20 157/87 93 03/30/17 00:00 98.0 79 20 164/92 96 03/29/17 20:00 98.6 96 20 188/118 92 03/29/17 17:14 99.5 77 18 158/107 96 03/29/17 11:44 98.1 79 18 136/69 95 03/29/17 08:26 56 03/29/17 08:10 Room Air 03/29/17 07:49 97.8 66 18 166/97 98 I/O 03/29/17 03/29/17 03/29/17 03/30/17 03/30/17 03/30/17 07:00 15:00 23:00 07:00 15:00 23:00 Intake Total 1119 ml 1379 ml 480 ml Output Total 825 ml 500 ml 1150 ml 200 ml Balance 294 ml -500 ml 229 ml 280 ml Intake Oral 480 ml 480 ml IV Total 1119 ml 899 ml Output Urine Total 825 ml 500 ml 1150 ml 200 ml # Bowel Movements 0 0 0 Result Diagram: 03/29/17 0613 03/29/17 0613 Objective Remarks arms not swollen upper lip seems alittle worse he has abrasion left elbow and upper lip there is a whitish green discoloration of the upper gingival region no edema Assessment and Plan Assessment and Plan imp the lip edema could be from dil and it has been changed to keppra eeg neg and i suspect sz from cocaine the gum change looks like possible bacterial infection and unclear if he hit his upper lip on street with sz not seen in notes prior consider id or dental to look at gum area as it is a bit more swollen today check mri with sz dc cocaine Junior Lewis MD Mar 30, 2017 07:34
[2017-03-30] MEDS: PANTOPRAZOLE SODIUM 40 MG VIAL IV SCH (08:41)
[2017-03-30] MEDS: ACETAMINOPHEN 325 MG TAB PO PRN ×2 (08:42→20:52)
[2017-03-30] MEDS: hydrALAZINE HCL 25 MG TAB PO SCH ×2 (08:42→20:52)
[2017-03-30] MEDS: DOCUSATE SODIUM 50 MG/SENNA 8.6 MG TAB PO SCH ×2 (08:44→20:52)
[2017-03-30] MEDS: levETIRAcetam 500 MG TAB PO SCH ×2 (08:44→20:52)
[2017-03-30] MEDS: CLINDAMYCIN 150 MG CAP PO SCH ×3 (13:04→23:01)
--- NOTE | 2017-03-30 14:42 | HHI.PR ---
Subjective Remarks patient laying in bed still feeling tender in his upper lip No fever or chills, seen by neurology change Capo Guzman, recommending ID consultation for treating possible infection I started patient on clindamycin and Bactroban ointment Objective Vitals Vital Signs Date Time Temp Pulse Resp B/P Pulse Ox O2 Delivery O2 Flow Rate FiO2 03/30/17 12:00 97.6 74 17 136/80 96 03/30/17 09:42 16 03/30/17 08:00 Room Air 03/30/17 08:00 98.0 77 17 155/103 98 03/30/17 04:00 98.0 68 20 157/87 93 03/30/17 00:00 98.0 79 20 164/92 96 03/29/17 20:00 98.6 96 20 188/118 92 03/29/17 17:14 99.5 77 18 158/107 96 I/O 03/29/17 03/29/17 03/29/17 03/30/17 03/30/17 03/30/17 07:00 15:00 23:00 07:00 15:00 23:00 Intake Total 1119 ml 1379 ml 480 ml Output Total 825 ml 500 ml 1150 ml 200 ml 901 ml Balance 294 ml -500 ml 229 ml 280 ml -901 ml Intake Oral 480 ml 480 ml IV Total 1119 ml 899 ml Output Urine Total 825 ml 500 ml 1150 ml 200 ml 900 ml Stool Total 1 ml # Bowel Movements 0 0 0 Result Diagram: 03/29/17 0613 03/29/17612 Objective Remarks - GENERAL: This is a well-nourished, well-developed patient, in no apparent distress. CARDIOVASCULAR: Regular rate and rhythm without murmurs, gallops, or rubs. RESPIRATORY: Clear to auscultation. Breath sounds equal bilaterally. No wheezes , rales, or rhonchi. GASTROINTESTINAL: Abdomen soft, non-tender, nondistended. Normal active bowel sounds MUSCULOSKELETAL: Extremities without clubbing, cyanosis, or edema. NEURO: Alert & Oriented x4 to person, place, time, situation. Moves all ext x4 Oral cavity: Upper lip swollen with what it looks like a bulla, and cut about 1 cm Date of Insertion: Mar 22, 2017 A/P Assessment and Plan 03/25: Blood pressure still uncontrolled>> Add lisinopril EEG unremarkable, neuro following Continue monitoring 03/27: Lumbar CT came back negative Upper lip still swollen, will continue Solu-Medrol iv No ROSENDA inhibitor or lisinopril Hopefully discharge in a.m. if lip improved 03/28: Still having upper lip swelling, now painful with a bulla , also little cut about 1 cm>> unlikely related to Ric Juma since skin and oral cavity looks normal, mostly angioedema with possible infection due to the skin, continue solumedrol , loratedine 03/29: Upper lip still not improving, now extending to the upper gum ? Dilantin side effect , discussed with Dr. Lewis over the phone extensively, agreed with stopping Dilantin, starting loading dose of Keppra thousand milligram once and resuming with by mouth tomorrow, continue under telemetry with seizure precaution, continue Solu-Medrol and loratadine, monitor 03/30: Continue current care, Dilantin changed to Keppra, appreciate neurology recommendation, started clindamycin by mouth for possible underlying cellulitis/ gingivitis, consult ID ICU A/P Acute hypoxemic Respiratory failure -status post intubation Status epilepticus -03/22Loaded with Dilantin - Continue Dilantin scheduled - Further management per neurology - IV fluids normal saline at 125/hour -GCS 11 T -Neurology following Hypokalemia - Electrolyte replacement per ICU protocol Polysubstance abuse - Positive for cocaine marijuana - Monitor for withdrawal - Benzodiazepines when necessary Hypertensive crisis- -Norvasc 10 mg daily -Nicardipine discontinued -Maintain systolic blood pressure less than 160 DVT GI prophylaxis - Teds SCDs - Subcutaneous heparin - Drake Beebe MD Mar 30, 2017 14:42
[2017-03-30] MEDS ORDERED: GADODIAMIDE PF 287 MG/ML 20 ML VIAL (for RAD MRI) IV ONE (15:54)
--- NOTE | 2017-03-30 16:01 | RADRPT ---
EXAM DATE/TIME: 03/30/2017 15:19 [place] COMPARISON: No previous studies available for comparison. INDICATIONS : Seizures. CONTRAST: 16 cc Omniscan (gadodiamide) IV MEDICAL HISTORY : None. SURGICAL HISTORY : None. ENCOUNTER: Initial ACUITY: 3 day PAIN SCORE: 0/10 LOCATION: cranial TECHNIQUE: Multiplanar, multisequence MRI of the brain was performed both prior to and following the administrat ion of paramagnetic contrast. FINDINGS: CEREBRUM: The ventricles are normal for age. No evidence of midline shift, mass lesion, hemorrhage or acute in farction. No extraaxial fluid collections are seen. The pituitary gland and suprasellar cistern are normal in configuration. WHITE MATTER: No significant signal abnormalities are seen in the white matter. POSTERIOR FOSSA: The cerebellum and brainstem are intact. The 4th ventricle is midline. The cerebellopontine angle is unremarkable. The cerebellar tonsils are normal in position. DIFFUSION IMAGING: No focal areas of restricted diffusion are seen. No evidence of acute infarction. EXTRACRANIAL: Prominent area of lobular T2 prolongation in the left maxillary sinus without air-fluid level. The v isualized portions of the orbits are unremarkable. POST-CONTRAST: No abnormal areas of parenchymal or dural enhancement. No evidence of blood-brain barrier breakdown. CONCLUSION: 1. Negative MRI of the brain with and without contrast. 2. Left maxillary sinus disease. Tate Fowler MD on March 30, 2017 at 15:57 Board Certified Radiologist. This report was verified electronically.
[2017-03-31] VITALS (9 sets, daily range): BP systolic 127–171; BP diastolic 66–110; PULSE 62–82; RESP 18–20; TEMP 97.5–98.3; O2SAT 94–98
[2017-03-31] MEDS: CHLORHEXIDINE GLUCONATE 2 % 1 PACK (2 CLOTHS) TOP SCH (03:05)
[2017-03-31] MEDS: CLINDAMYCIN 150 MG CAP PO SCH ×4 (05:12→23:52)
[2017-03-31] MEDS: MUPIROCIN 2% OINT 22 GM TUBE TOPICAL SCH ×3 (05:12→21:28)
[2017-03-31] MEDS: methylPREDNISolone SOD SUCC 125 MG/2 ML VIAL IV PUSH SCH (05:14)
[2017-03-31] MEDS: INSULIN ASPART SUPPLEMENTAL SCALE SQ SCH ×4 (06:00→21:28)
[2017-03-31] MEDS: levETIRAcetam 500 MG TAB PO SCH ×2 (09:00→21:28)
[2017-03-31] MEDS: hydrALAZINE HCL 25 MG TAB PO SCH ×2 (09:00→21:28)
[2017-03-31] MEDS: PANTOPRAZOLE SODIUM 40 MG VIAL IV SCH (09:00)
[2017-03-31] MEDS: DOCUSATE SODIUM 50 MG/SENNA 8.6 MG TAB PO SCH ×2 (09:00→21:28)
--- NOTE | 2017-03-31 11:32 | HHI.PR ---
Subjective Remarks Still with swollen and painful upper lip No fever or chills Awaiting ID consultation, started on clindamycin Objective Vitals Vital Signs Date Time Temp Pulse Resp B/P Pulse Ox O2 Delivery O2 Flow Rate FiO2 03/31/17 08:00 98.3 77 20 159/100 96 03/31/17 07:47 62 03/31/17 04:30 98.0 71 18 130/85 94 03/31/17 01:21 73 03/31/17 00:30 98.1 82 19 136/80 96 03/30/17 20:00 98.3 80 18 144/84 95 03/30/17 16:50 93 21 03/30/17 16:00 98.4 77 17 153/96 96 03/30/17 12:00 97.6 74 17 136/80 96 I/O 03/30/17 03/30/17 03/30/17 03/31/17 03/31/17 03/31/17 07:00 15:00 23:00 07:00 15:00 23:00 Intake Total 480 ml 480 ml 2428 ml 1425 ml Output Total 200 ml 901 ml 1675 ml 1800 ml Balance 280 ml -421 ml 753 ml -375 ml Intake Oral 480 ml 480 ml 400 ml 900 ml IV Total 2028 ml 525 ml Output Urine Total 200 ml 900 ml 1675 ml 1800 ml Stool Total 1 ml # Voids 2 # Bowel Movements 0 1 3 0 Result Diagram: 03/29/1761203/29/17612 Objective Remarks - GENERAL: This is a well-nourished, well-developed patient, in no apparent distress. CARDIOVASCULAR: Regular rate and rhythm without murmurs, gallops, or rubs. RESPIRATORY: Clear to auscultation. Breath sounds equal bilaterally. No wheezes , rales, or rhonchi. GASTROINTESTINAL: Abdomen soft, non-tender, nondistended. Normal active bowel sounds MUSCULOSKELETAL: Extremities without clubbing, cyanosis, or edema. NEURO: Alert & Oriented x4 to person, place, time, situation. Moves all ext x4 Oral cavity: Upper lip swollen with what it looks like a bulla, and cut about 1 cm Date of Insertion: Mar 22, 2017 A/P Assessment and Plan Acute hypoxemic Respiratory failure -status post intubation Status epilepticus, Cocaine induced seizure -6/29Loaded with Dilantin, Then switched to Keppra by neurology Due to possible drug effect upper lip swelling stop cocaine Upper leg swelling With gingivitis? Drug induced(Dilantin and lisinopril) Both parts stopped, continue Solu-Medrol tapering, Added clindamycin for underlying infection Appreciated ID Consult Polysubstance abuse - Positive for cocaine marijuana - Monitor for withdrawal - Benzodiazepines when necessary Hypertensive crisis- -Norvasc 10 mg daily, s/p Nicardipine started on lisinopril 5 mg one dose then Stopped due to swelling upper lip angioedema DVT GI prophylaxis - Teds SCDs - Subcutaneous heparin - PepDrake Urbina MD Mar 31, 2017 11:32 -Neurology following Hypokalemia - Electrolyte replacement per ICU protocol Polysubstance abuse - Positive for cocaine marijuana - Monitor for withdrawal - Benzodiazepines when necessary Hypertensive crisis- -Norvasc 10 mg daily -Nicardipine discontinued -Maintain systolic blood pressure less than 160 DVT GI prophylaxis - Teds SCDs - Subcutaneous heparin - Drake Beebe MD Mar 31, 2017 11:32
[2017-03-31] MEDS ORDERED: LEVE500 PO (11:34)
--- NOTE | 2017-03-31 13:32 | PD.ID.CON ---
History of Present Illness Service ID Consult Requested By Dr Monreal Reason for Consult upper lip and gum infx Primary Care Physician Unknown Diagnoses: History of Present Illness 37 yo male admitted 10 days ago with new onset seizure Drug screen + cocain/THC/ benzos Pt had neg MRI/EEG and he was seen by neurologist who thinks his sz is coccain induced he was intubated for airway protection Apparently pt developped edema of his lip after administration of lisinopril He wa started on sterrods, tapering doses, but cont to have edema He thinks he has some periodic drainage form the crack on the buccal aspect of the lip He is afebrile and eosinophils are negative He was started on clindamycin yday He is frustrated and upset that his lip swelling is not improving Review of Systems Neurologic: COMPLAINS OF: Seizures Except as stated in HPI: all other systems reviewed are Neg Past Family Social History Allergies: Coded Allergies: Lisinopril (Verified Allergy, Severe, angioedema, 03/26/17) Past Medical History denies Past Surgical History denies Active Ordered Medications Medications where reviewed in EMR Antibiotics Include: clindamycin Family History Non-Contributory to current condition Social History + tobacco + illicit drugs: cocain, THC, benzos denies ETOH abuse Physical Exam Vital Signs Vital Signs Date Time Temp Pulse Resp B/P Pulse Ox O2 Delivery O2 Flow Rate FiO2 03/31/17 12:26 62 03/31/17 08:00 98.3 77 20 159/100 96 03/31/17 07:47 62 03/31/17 04:30 98.0 71 18 130/85 94 03/31/17 01:21 73 03/31/17 00:30 98.1 82 19 136/80 96 03/30/17 20:00 98.3 80 18 144/84 95 03/30/17 16:50 93 21 03/30/17 16:00 98.4 77 17 153/96 96 Physical Exam CONSTITUTIONAL/GENERAL: This is an adequately nourished patient, in no apparent distress. TUBES/LINES/DRAINS: SKIN: No jaundice, rashes, or lesions. Skin temperature appropriate. Not diaphoretic. No needle thao HEAD: Atraumatic. Normocephalic. EYES: Pupils equal and round and reactive. Extraocular motions intact. No scleral icterus. No injection or drainage. Fundi not examined. ENT: Hearing grossly normal. Nose without bleeding or purulent drainage. Upper lip with soft edema, 2-3 times large in normal size ; no fluctuance , no drainage with a crusted lesion Deep vertical crack in the middle on buccal aspect of the lip Upper mid gum with prominemt periodotatal disease NECK: Trachea midline. Supple, nontender. No palpable thyroid enlargement or nodularity. CARDIOVASCULAR: Regular rate and rhythm without murmurs, gallops, or rubs. No JVD. Peripheral pulses symmetric. RESPIRATORY/CHEST: Symmetric, unlabored respirations. Clear to auscultation. Breath sounds equal bilaterally. No wheezes, rales, or rhonchi. GASTROINTESTINAL: Abdomen soft, non-tender, nondistended. No hepato-splenomegaly , or palpable masses. No guarding. Bowel sounds present. GENITOURINARY: Without palpable bladder distension. Painting catheter in place. MUSCULOSKELETAL: Extremities without clubbing, cyanosis, or edema. No joint tenderness or effusion noted. No calf tenderness. No mottling or clubbing. LYMPHATICS: No palpable cervical submandibular or supraclavicular adenopathy. NEUROLOGICAL: Awake and alert. Motor and sensory grossly within normal limits. Follows commands. Clear speech. Moves all extremities. PSYCHIATRIC: No obvious anxiety/depression. no apparent hallucinations or other psychotic thought process. Irritable Result Diagram: 03/29/1713 03/29/17 0613 Imaging Last Impressions Brain MRI 03/30/17 0000 Signed Impressions: Service Date/Time: Thursday, March 30, 2017 15:19 - CONCLUSION: 1. Negative MRI of the brain with and without contrast. 2. Left maxillary sinus disease. Tate Fowler MD Lumbar Spine CT 03/26/17 0000 Signed Impressions: Service Date/Time: Sunday, March 26, 2017 15:57 - CONCLUSION: Normal examination for a patient of this age. Santos Mathews MD Chest X-Ray 03/22/17 1406 Signed Impressions: Service Date/Time: February 14:26 - CONCLUSION: 1. Endotracheal tube in good position 4 cm above the liza. 2. Nasogastric tube in good position in the stomach. 3. No acute focal pulmonary infiltrate or pulmonary vascular congestion. Livan Dos Santos MD Head CT 03/22/17 0000 Signed Impressions: Service Date/Time: February 14:05 - CONCLUSION: No acute intracranial findings. Kurt Ugarte MD Cervical Spine CT 03/22/17 0000 Signed Impressions: Service Date/Time: February 14:07 - CONCLUSION: 1. No acute disease. 2. Minimal cervical spondylosis is noted at C4-5 and to a lesser extent at C3-4 and C5-6. Livan Dos Santos MD Assessment and Plan Assessment and Plan Cocaine induced seizure Lip edema, presumable drug reaction (lisinopril, dilantin) - persistent edema, ? superimposed mild infx Gingivitis cont clindamycin fu clinically if no improvement on appropriate abx consider non infectious ethiology Bhakti Moncada MD Mar 31, 2017 13:32
[2017-03-31] MEDS: SODIUM CHLOR 0.9% 1000 ML INJ 1,000 ML IV SCH ×2 (14:54→23:53)
[2017-03-31] MEDS: ACETAMINOPHEN 325 MG TAB PO PRN (21:27)
[2017-03-31] MEDS ORDERED: KETOROLAC TROMETHAMINE 60 MG/2 ML (IM) VIAL IM ONE (21:45)
[2017-04-01] VITALS (8 sets, daily range): BP systolic 123–145; BP diastolic 66–90; PULSE 67–80; RESP 16–20; TEMP 97.5–98.6; O2SAT 95–97
[2017-04-01] MEDS: CHLORHEXIDINE GLUCONATE 2 % 1 PACK (2 CLOTHS) TOP SCH (03:14)
[2017-04-01] MEDS: CLINDAMYCIN 150 MG CAP PO SCH ×4 (05:42→23:30)
[2017-04-01] MEDS: MUPIROCIN 2% OINT 22 GM TUBE TOPICAL SCH ×3 (05:42→20:56)
[2017-04-01] MEDS: INSULIN ASPART SUPPLEMENTAL SCALE SQ SCH ×4 (06:19→20:56)
[2017-04-01] MEDS: DOCUSATE SODIUM 50 MG/SENNA 8.6 MG TAB PO SCH ×2 (09:00→20:56)
[2017-04-01] MEDS: PANTOPRAZOLE SODIUM 40 MG VIAL IV SCH (10:26)
[2017-04-01] MEDS: hydrALAZINE HCL 25 MG TAB PO SCH ×2 (10:27→20:56)
[2017-04-01] MEDS: levETIRAcetam 500 MG TAB PO SCH ×2 (10:27→20:56)
[2017-04-01] MEDS: predniSONE 20 MG TAB PO SCH (10:27)
[2017-04-01] MEDS ORDERED: KETOROLAC TROMETHAMINE 30 MG/ML (IVP) VIAL IV PUSH ONE ×2 (11:00→21:15)
--- NOTE | 2017-04-01 11:16 | HHI.PR ---
Subjective Remarks No acute events overnight. Afebrile, vital signs stable. Patient complains of severe headache this morning. He had a headache last night which was relieved with Toradol. He also complains of severe pain in his upper lip. He states he is eating and drinking well. Objective Vitals Vital Signs Date Time Temp Pulse Resp B/P Pulse Ox O2 Delivery O2 Flow Rate FiO2 04/01/17 10:38 75 04/01/17 08:27 98.0 70 17 145/90 96 04/01/17 04:20 97.8 67 16 123/80 95 04/01/17 00:32 77 04/01/17 00:00 97.6 70 20 128/67 95 03/31/17 20:00 97.8 75 20 127/66 96 03/31/17 16:00 98.2 77 20 138/88 98 03/31/17 12:26 62 03/31/17 12:00 97.5 81 20 171/110 98 I/O 03/31/17 03/31/17 03/31/17 04/01/17 04/01/17 04/01/17 07:00 15:00 23:00 07:00 15:00 23:00 Intake Total 1425 ml 800 ml 300 ml 490 ml Output Total 1800 ml 300 ml Balance -375 ml 800 ml 0 ml 490 ml Intake Oral 900 ml 800 ml IV Total 525 ml 300 ml 490 ml Output Urine Total 1800 ml 300 ml # Voids 4 # Bowel Movements 0 1 Result Diagram: 03/29/17 0613 03/29/17 0613 Objective Remarks GENERAL: This is a well-nourished, well-developed patient, in no apparent distress. CARDIOVASCULAR: Regular rate and rhythm without murmurs, gallops, or rubs. RESPIRATORY: Clear to auscultation. Breath sounds equal bilaterally. No wheezes , rales, or rhonchi. GASTROINTESTINAL: Abdomen soft, non-tender, nondistended. Normal active bowel sounds MUSCULOSKELETAL: Extremities without clubbing, cyanosis, or edema. NEURO: Alert & Oriented x4 to person, place, time, situation. Moves all ext x4 Oral cavity: Upper lip swollen with crusting around upper michel boarder. No drainage. Date of Insertion: Mar 22, 2017 A/P Assessment and Plan Acute hypoxemic Respiratory failure -status post intubation Status epilepticus, Cocaine induced seizure -03/22 Loaded with Dilantin, Then switched to Keppra by neurology due to possible drug effect upper lip swelling -stop cocaine Upper lip swelling With gingivitis? Drug induced(Dilantin and lisinopril) Both meds stopped, Added clindamycin for underlying infection Appreciated ID Consult, agree with Clinda and probable drug effect Polysubstance abuse - Positive for cocaine marijuana - Monitor for withdrawal - Benzodiazepines when necessary Hypertensive crisis- -Norvasc 10 mg daily, s/p Nicardipine started on lisinopril 5 mg one dose then Stopped due to swelling upper lip angioedema BP currently well controlled DVT GI prophylaxis - Teds SCDs - Subcutaneous heparin - Pepcid Discharge Planning Once cleared by Neurology Wanda Arciniega MD R3 Apr 01, 2017 11:16
[2017-04-02] VITALS: BP 141/72; PULSE 75; RESP 20; TEMP 97.2; O2SAT 97
[2017-04-02] MEDS: CHLORHEXIDINE GLUCONATE 2 % 1 PACK (2 CLOTHS) TOP SCH (03:39)
[2017-04-02] MEDS: CLINDAMYCIN 150 MG CAP PO SCH ×4 (05:20→23:00)
[2017-04-02] MEDS: MUPIROCIN 2% OINT 22 GM TUBE TOPICAL SCH ×3 (05:21→21:24)
[2017-04-02 06:11] VITALS: BP 142/86; PULSE 76; RESP 20; TEMP 97.9; O2SAT 96
[2017-04-02] MEDS: INSULIN ASPART SUPPLEMENTAL SCALE SQ SCH ×4 (06:15→21:00)
--- NOTE | 2017-04-02 07:48 | HHI.PR ---
Subjective Remarks i was called to see pt by med team for swollen arm and gums Objective Vital Signs Date Time Temp Pulse Resp B/P Pulse Ox O2 Delivery O2 Flow Rate FiO2 04/02/17 06:11 97.9 76 20 142/86 96 04/02/17 00:00 97.2 75 20 141/72 97 04/01/17 20:00 98.5 80 20 130/70 95 04/01/17 15:58 98.6 72 16 139/79 97 04/01/17 12:09 97.5 77 18 124/66 97 04/01/17 10:38 75 04/01/17 08:27 98.0 70 17 145/90 96 I/O 04/01/17 04/01/17 04/01/17 04/02/17 04/02/17 04/02/17 07:00 15:00 23:00 07:00 15:00 23:00 Intake Total 490 ml 960 ml Output Total 1000 ml Balance 490 ml -40 ml Intake Oral 960 ml IV Total 490 ml Output Urine Total 1000 ml # Voids 3 # Bowel Movements 1 Result Diagram: 03/29/1713 03/29/1713 Objective Remarks arms not swollen upper lip seems alittle better he has abrasion left elbow and upper lip Assessment and Plan Assessment and Plan imp the lip edema could be from dil and it has been changed to keppra eeg neg and i suspect sz from cocaine the gum change looks like possible bacterial infection and unclear if he hit his upper lip on street with sz not seen in notes prior check mri neg dc cocaine ok neuro bowman i will sign off not to drive Junior Lewis MD Apr 02, 2017 07:48
[2017-04-02 08:00] VITALS: BP 132/71; PULSE 67; RESP 18; TEMP 98.6; O2SAT 98
[2017-04-02] MEDS: DOCUSATE SODIUM 50 MG/SENNA 8.6 MG TAB PO SCH ×2 (08:07→21:21)
[2017-04-02] MEDS: predniSONE 20 MG TAB PO SCH (08:07)
[2017-04-02] MEDS: levETIRAcetam 500 MG TAB PO SCH ×2 (08:08→21:21)
[2017-04-02] MEDS: hydrALAZINE HCL 25 MG TAB PO SCH ×2 (08:08→21:22)
[2017-04-02] MEDS: PANTOPRAZOLE SODIUM 40 MG VIAL IV SCH (08:09)
--- NOTE | 2017-04-02 08:39 | HHI.PR ---
Subjective Remarks 37 years old male, left handed no complains of headaches, no difficulty swallowing still having pain upper gingival area, upper lip still with swelling- per patient decrease no further seizure episodes reported Objective Vitals Vital Signs Date Time Temp Pulse Resp B/P Pulse Ox O2 Delivery O2 Flow Rate FiO2 04/02/17 06:11 97.9 76 20 142/86 96 04/02/17 00:00 97.2 75 20 141/72 97 04/01/17 20:00 98.5 80 20 130/70 95 04/01/17 15:58 98.6 72 16 139/79 97 04/01/17 12:09 97.5 77 18 124/66 97 04/01/17 10:38 75 I/O 04/01/17 04/01/17 04/01/17 04/02/17 04/02/17 04/02/17 07:00 15:00 23:00 07:00 15:00 23:00 Intake Total 490 ml 960 ml Output Total 1000 ml Balance 490 ml -40 ml Intake Oral 960 ml IV Total 490 ml Output Urine Total 1000 ml # Voids 3 # Bowel Movements 1 Result Diagram: 03/29/17 0613 03/29/17 0613 Imaging Last Impressions Brain MRI 03/30/17 0000 Signed Impressions: Service Date/Time: Thursday, March 30, 2017 15:19 - CONCLUSION: 1. Negative MRI of the brain with and without contrast. 2. Left maxillary sinus disease. Tate Fowler MD Lumbar Spine CT 03/26/17 0000 Signed Impressions: Service Date/Time: Sunday, March 26, 2017 15:57 - CONCLUSION: Normal examination for a patient of this age. Santos Mathews MD Chest X-Ray 03/22/17 1406 Signed Impressions: Service Date/Time: February 14:26 - CONCLUSION: 1. Endotracheal tube in good position 4 cm above the liza. 2. Nasogastric tube in good position in the stomach. 3. No acute focal pulmonary infiltrate or pulmonary vascular congestion. Livan Dos Santos MD Head CT 03/22/17 0000 Signed Impressions: Service Date/Time: February 14:05 - CONCLUSION: No acute intracranial findings. Kurt Ugarte MD Cervical Spine CT 03/22/17 0000 Signed Impressions: Service Date/Time: February 14:07 - CONCLUSION: 1. No acute disease. 2. Minimal cervical spondylosis is noted at C4-5 and to a lesser extent at C3-4 and C5-6. Livan Dos Santos MD Objective Remarks awake and alert, oriented x 3 anicteric upper lip swelling- , fulcrum with dry black scab, upper gingival area with ulcers, tender lower gingival area- no lesion no nuchal rigidity lungs no rales or wheezes regular rhythm abdomen soft, nontender extremities no edema Date of Insertion: Mar 22, 2017 Date of Removal: Mar 26, 2017 A/P Assessment and Plan Acute hypoxemic Respiratory failure -status post intubation Status epilepticus, Cocaine induced seizure -03/22Loaded with Dilantin, Then switched to Keppra by neurology Due to possible drug effect upper lip swelling stop cocaine Upper leg swelling With gingivitis? Drug induced(Dilantin and lisinopril) Both parts stopped, continue Solu-Medrol tapering, Added clindamycin for underlying infection Appreciated ID Consult Polysubstance abuse - Positive for cocaine marijuana - Monitor for withdrawal - Benzodiazepines when necessary Hypertensive crisis- -Norvasc 10 mg daily, s/p Nicardipine started on lisinopril 5 mg one dose then Stopped due to swelling upper lip angioedema DVT GI prophylaxis - Teds SCDs - Subcutaneous heparin - Matty Riggs MD Apr 02, 2017 08:39 PT/OT daily Out of bed- to chair Matty Dietrich MD Apr 02, 2017 08:39
[2017-04-02 12:00] VITALS: BP 127/72; PULSE 89; RESP 24; TEMP 98.6; O2SAT 93
[2017-04-02] MEDS: ACETAMINOPHEN 325 MG TAB PO PRN (13:35)
[2017-04-02] MEDS: KETOROLAC TROMETHAMINE 10 MG TAB PO PRN ×2 (14:36→23:00)
[2017-04-02 16:00] VITALS: BP 148/73; PULSE 76; RESP 26; TEMP 98.8; O2SAT 95
--- NOTE | 2017-04-02 17:52 | PD.CONS ---
History of Present Illness Service ENT Consult Requested By Hospitalist Reason for Consult Lip ulcer Primary Care Physician Unknown Diagnoses: History of Present Illness 37 yo male admitted 10 days ago with new onset seizure, was intubated. Developed lip edema thought to be from Lisinipril. Has been discontinued. On steroid taper. Has external ucler and internal painful oral ulcer. Review of Systems Ears, nose, mouth, throat: COMPLAINS OF: Oral lesions, DENIES: Nasal discharge Past Family Social History Allergies: Coded Allergies: Lisinopril (Verified Allergy, Severe, angioedema, 03/26/17) Physical Exam Vital Signs Vital Signs Date Time Temp Pulse Resp B/P Pulse Ox O2 Delivery O2 Flow Rate FiO2 04/02/17 16:00 98.8 76 26 148/73 95 04/02/17 12:00 98.6 89 24 127/72 93 04/02/17 08:00 98.6 67 18 132/71 98 04/02/17 06:11 97.9 76 20 142/86 96 04/02/17 00:00 97.2 75 20 141/72 97 04/01/17 20:00 98.5 80 20 130/70 95 Physical Exam GENERAL: This is a well-nourished, well-developed patient, in no apparent distress. SKIN: No rashes, ecchymoses or lesions. Cool and dry. HEAD: Atraumatic. Normocephalic. No temporal or scalp tenderness. EYES: Pupils equal round and reactive. Extraocular motions intact. No scleral icterus. No injection or drainage. ENT: Nose without bleeding, purulent drainage or septal hematoma. Throat without erythema, tonsillar hypertrophy or exudate. Uvula midline. Airway patent. Lip edema with healing external ulcer. Internal has oral traumatic appearing ulcer. No fluctuance. NECK: Trachea midline. No JVD or lymphadenopathy. Supple, nontender, no meningeal signs. Result Diagram: 03/29/1761203/29/17612 Assessment and Plan Assessment and Plan Lip angioedema. External skin ulcer clean and healing. Would apply Bactroban BID to help this area regenerate.Would consider Plastics Consult for any unfavorable scarring. Internally has traumatic ulcers that are more painful. May benefit from oral rinse. defer to Oral Surgery on possible treatment. Consider OMFS consult. John Palacios MD Apr 02, 2017 17:52
[2017-04-02 21:28] VITALS: BP 158/83; PULSE 79; RESP 20; TEMP 97.8; O2SAT 96
[2017-04-03] VITALS (7 sets, daily range): BP systolic 126–151; BP diastolic 63–93; PULSE 64–93; RESP 20; TEMP 95.3–98.4; O2SAT 95–100
[2017-04-03] MEDS: CHLORHEXIDINE GLUCONATE 2 % 1 PACK (2 CLOTHS) TOP SCH (03:04)
[2017-04-03] MEDS: CLINDAMYCIN 150 MG CAP PO SCH ×4 (06:36→23:33)
[2017-04-03] MEDS: KETOROLAC TROMETHAMINE 10 MG TAB PO PRN (06:36)
[2017-04-03] MEDS: MUPIROCIN 2% OINT 22 GM TUBE TOPICAL SCH ×3 (06:36→21:23)
[2017-04-03] MEDS: DOCUSATE SODIUM 50 MG/SENNA 8.6 MG TAB PO SCH ×2 (09:48→21:23)
[2017-04-03] MEDS: PANTOPRAZOLE SOD 40 MG DELAYED RELEASE TAB PO SCH (09:48)
[2017-04-03] MEDS: hydrALAZINE HCL 25 MG TAB PO SCH ×2 (09:48→21:23)
[2017-04-03] MEDS: levETIRAcetam 500 MG TAB PO SCH ×2 (09:49→21:23)
[2017-04-03] MEDS: predniSONE 20 MG TAB PO SCH (09:49)
--- NOTE | 2017-04-03 11:45 | HHI.PR ---
Subjective Remarks swallowing well with no difficulty epr patient still with oral /gingival pain Objective Vitals Vital Signs Date Time Temp Pulse Resp B/P Pulse Ox O2 Delivery O2 Flow Rate FiO2 04/03/17 08:08 04/03/17 08:00 97.8 64 20 135/93 97 04/03/17 06:45 97.0 68 20 133/72 99 04/03/17 01:59 95.3 69 20 151/77 99 04/02/17 21:28 97.8 79 20 158/83 96 04/02/17 16:00 98.8 76 26 148/73 95 04/02/17 12:00 98.6 89 24 127/72 93 I/O 04/02/17 04/02/17 04/02/17 04/03/17 04/03/17 04/03/17 07:00 15:00 23:00 07:00 15:00 23:00 # Voids 3 1 Imaging Last Impressions Brain MRI 03/30/17 0000 Signed Impressions: Service Date/Time: Thursday, March 30, 2017 15:19 - CONCLUSION: 1. Negative MRI of the brain with and without contrast. 2. Left maxillary sinus disease. Tate Fowler MD Lumbar Spine CT 03/26/17 0000 Signed Impressions: Service Date/Time: Sunday, March 26, 2017 15:57 - CONCLUSION: Normal examination for a patient of this age. Santos Mathews MD Chest X-Ray 03/22/17 1406 Signed Impressions: Service Date/Time: February 14:26 - CONCLUSION: 1. Endotracheal tube in good position 4 cm above the liza. 2. Nasogastric tube in good position in the stomach. 3. No acute focal pulmonary infiltrate or pulmonary vascular congestion. Livan Dos Santos MD Head CT 03/22/17 0000 Signed Impressions: Service Date/Time: February 14:05 - CONCLUSION: No acute intracranial findings. Kurt Ugarte MD Cervical Spine CT 03/22/17 0000 Signed Impressions: Service Date/Time: February 14:07 - CONCLUSION: 1. No acute disease. 2. Minimal cervical spondylosis is noted at C4-5 and to a lesser extent at C3-4 and C5-6. Livan Dos Santos MD Objective Remarks awake and alert, oriented x 3 anicteric upper lip swelling- , fulcrum with dry black scab, upper gingival area with ulcers, tender lower gingival area- no lesion no nuchal rigidity lungs no rales or wheezes regular rhythm abdomen soft, nontender extremities no edema Date of Insertion: Mar 22, 2017 Date of Removal: Mar 26, 2017 A/P Assessment and Plan Acute hypoxemic Respiratory failure -status post intubation Status epilepticus, Cocaine induced seizure -03/22Loaded with Dilantin, Then switched to Keppra by neurology Due to possible drug effect upper lip swelling stop cocaine Upper leg swelling With gingivitis? Drug induced(Dilantin and lisinopril) Both parts stopped, continue Solu-Medrol tapering, Added clindamycin for underlying infection Appreciated ID Consult Consult OMFS- for gingival lesions Polysubstance abuse - Positive for cocaine marijuana - Monitor for withdrawal - Benzodiazepines when necessary Hypertensive crisis- -Norvasc 10 mg daily, s/p Nicardipine Lisinopril 5 mg one dose then Stopped due to swelling upper lip angioedema DVT GI prophylaxis - Teds SCDs - Subcutaneous heparin - Matty Riggs MD Apr 03, 2017 11:45
--- NOTE | 2017-04-03 15:54 | HHI.IDPN ---
Subjective Subjective Remarks pt is doing slowly better he thinks clindamycin helps blood clx are negative WBC elevated but going down afebrile co migraines Antibiotics cluindamycin Allergies: Coded Allergies: Lisinopril (Verified Allergy, Severe, angioedema, 03/26/17) Objective . Vital Signs Date Time Temp Pulse Resp B/P Pulse Ox O2 Delivery O2 Flow Rate FiO2 04/03/17 13:06 76 20 126/63 98 04/03/17 08:08 04/03/17 08:00 97.8 64 20 135/93 97 04/03/17 06:45 97.0 68 20 133/72 99 04/03/17 01:59 95.3 69 20 151/77 99 04/02/17 21:28 97.8 79 20 158/83 96 04/02/17 16:00 98.8 76 26 148/73 95 04/02/17 04/02/17 04/03/17 15:00 23:00 07:00 # Voids 1 Imaging Last Impressions Brain MRI 03/30/17 0000 Signed Impressions: Service Date/Time: Thursday, March 30, 2017 15:19 - CONCLUSION: 1. Negative MRI of the brain with and without contrast. 2. Left maxillary sinus disease. Tate Fowler MD Lumbar Spine CT 03/26/17 0000 Signed Impressions: Service Date/Time: Sunday, March 26, 2017 15:57 - CONCLUSION: Normal examination for a patient of this age. Santos Mathews MD Chest X-Ray 03/22/17 1406 Signed Impressions: Service Date/Time: February 14:26 - CONCLUSION: 1. Endotracheal tube in good position 4 cm above the liza. 2. Nasogastric tube in good position in the stomach. 3. No acute focal pulmonary infiltrate or pulmonary vascular congestion. Livan Dos Santos MD Head CT 03/22/17 0000 Signed Impressions: Service Date/Time: February 14:05 - CONCLUSION: No acute intracranial findings. Kurt Ugarte MD Cervical Spine CT 03/22/17 0000 Signed Impressions: Service Date/Time: February 14:07 - CONCLUSION: 1. No acute disease. 2. Minimal cervical spondylosis is noted at C4-5 and to a lesser extent at C3-4 and C5-6. Livan Dos Santos MD Physical Exam CONSTITUTIONAL/GENERAL: This is an adequately nourished patient, in no apparent distress. TUBES/LINES/DRAINS: SKIN: No jaundice, rashes, or lesions. Skin temperature appropriate. Not diaphoretic. No needle thao ENT: Hearing grossly normal. Nose without bleeding or purulent drainage. Upper lip with soft edema, much improved now almost normal size ; no fluctuance , no drainage clean based lesion Deep ulcer in the middle of buccal aspect of the lip - healinng Upper mid gum with prominemt periodotatal disease + new small amount of thrush CARDIOVASCULAR: Regular rate and rhythm without murmurs, gallops, or rubs. No JVD. Peripheral pulses symmetric. RESPIRATORY/CHEST: Symmetric, unlabored respirations. Clear to auscultation. Breath sounds equal bilaterally. No wheezes, rales, or rhonchi. GASTROINTESTINAL: Abdomen soft, non-tender, nondistended. No hepato-splenomegaly , or palpable masses. No guarding. Bowel sounds present. GENITOURINARY: Without palpable bladder distension. MUSCULOSKELETAL: Extremities without clubbing, cyanosis, or edema. No joint tenderness or effusion noted. No calf tenderness. No mottling or clubbing. NEUROLOGICAL: Awake and alert. no focal Assessment & Plan Remarks Cocaine induced seizure Lip edema, presumable drug reaction (lisinopril, dilantin) - persistent edema, ? superimposed mild infx Gingivitis Improving with clindamycin Mild oral thrush cont clindamycin add fluconazole 100 Bhakti Moncada MD Apr 03, 2017 15:54
[2017-04-03] MEDS: FLUCONAZOLE 100 MG TAB PO SCH (17:45)
[2017-04-04 01:00] VITALS: BP 133/77; PULSE 74; RESP 18; TEMP 97.3; O2SAT 97
[2017-04-04] MEDS: CHLORHEXIDINE GLUCONATE 2 % 1 PACK (2 CLOTHS) TOP SCH (03:41)
[2017-04-04 04:00] VITALS: BP 137/79; PULSE 67; RESP 18; TEMP 97.5; O2SAT 98
[2017-04-04] MEDS: MUPIROCIN 2% OINT 22 GM TUBE TOPICAL SCH ×2 (05:26→13:02)
[2017-04-04] MEDS: CLINDAMYCIN 150 MG CAP PO SCH ×2 (05:26→13:02)
[2017-04-04 07:58] VITALS: BP 142/82; PULSE 81; RESP 16; TEMP 98.4; O2SAT 97
[2017-04-04] MEDS: DOCUSATE SODIUM 50 MG/SENNA 8.6 MG TAB PO SCH (09:00)
[2017-04-04] MEDS ORDERED: predniSONE 10 MG TAB PO SCH (09:00)
[2017-04-04] MEDS ORDERED: CHLORHEXIDINE GLUCONATE 0.12% 15 ML CUP SWISH-SPIT SCH (09:00)
[2017-04-04] MEDS: FLUCONAZOLE 100 MG TAB PO SCH (09:43)
[2017-04-04] MEDS: levETIRAcetam 500 MG TAB PO SCH (09:44)
[2017-04-04] MEDS: PANTOPRAZOLE SOD 40 MG DELAYED RELEASE TAB PO SCH (09:44)
[2017-04-04] MEDS: hydrALAZINE HCL 25 MG TAB PO SCH (09:44)
[2017-04-04] MEDS: KETOROLAC TROMETHAMINE 10 MG TAB PO PRN (09:52)
[2017-04-04 12:08] VITALS: BP 133/72; PULSE 79; RESP 16; TEMP 98.1; O2SAT 97
--- NOTE | 2017-04-04 13:13 | HHI.PR ---
Subjective Remarks feels great no headaches, nausea or vomiting, swallowing no difficulties Objective Vitals Vital Signs Date Time Temp Pulse Resp B/P Pulse Ox O2 Delivery O2 Flow Rate FiO2 04/04/17 12:08 98.1 79 16 133/72 97 04/04/17 07:58 98.4 81 16 142/82 97 04/04/17 04:00 97.5 67 18 137/79 98 04/04/17 01:00 97.3 74 18 133/77 97 04/03/17 20:00 98.0 73 20 133/74 100 04/03/17 16:00 98.4 80 20 134/69 95 I/O 04/03/17 04/03/17 04/03/17 04/04/17 04/04/17 04/04/17 07:00 15:00 23:00 07:00 15:00 23:00 Intake Total 580 ml Balance 580 ml Intake Oral 580 ml # Voids 1 3 6 # Bowel Movements 1 1 Imaging Last Impressions Brain MRI 03/30/17 0000 Signed Impressions: Service Date/Time: Thursday, March 30, 2017 15:19 - CONCLUSION: 1. Negative MRI of the brain with and without contrast. 2. Left maxillary sinus disease. Tate Fowler MD Lumbar Spine CT 03/26/17 0000 Signed Impressions: Service Date/Time: Sunday, March 26, 2017 15:57 - CONCLUSION: Normal examination for a patient of this age. Santos Mathews MD Chest X-Ray 03/22/17 1406 Signed Impressions: Service Date/Time: February 14:26 - CONCLUSION: 1. Endotracheal tube in good position 4 cm above the liza. 2. Nasogastric tube in good position in the stomach. 3. No acute focal pulmonary infiltrate or pulmonary vascular congestion. Livan Dos Santos MD Head CT 03/22/17 0000 Signed Impressions: Service Date/Time: February 14:05 - CONCLUSION: No acute intracranial findings. Kurt Ugarte MD Cervical Spine CT 03/22/17 0000 Signed Impressions: Service Date/Time: February 14:07 - CONCLUSION: 1. No acute disease. 2. Minimal cervical spondylosis is noted at C4-5 and to a lesser extent at C3-4 and C5-6. Livan Dos Santos MD Objective Remarks awake and alert, oriented x 3 anicteric upper lip swelling- , fulcrum with dry black scab, upper gingival area with ulcers- improving lower gingival area- no lesion no nuchal rigidity lungs no rales or wheezes regular rhythm abdomen soft, nontender extremities no edema Date of Insertion: Mar 22, 2017 Date of Removal: Mar 26, 2017 A/P Assessment and Plan Acute hypoxemic Respiratory failure- Resolved -status post intubation Status epilepticus, Cocaine induced seizure -03/22Loaded with Dilantin, Then switched to Keppra by neurology Due to possible drug effect upper lip swelling stop cocaine - on Keppra 500 mg po bid ADvise on adequate sleep, no alcohol, cocaine no driving for 6 months OP ff upwith Dr. Lau Upper leg swelling With gingivitis? Drug induced(Dilantin and lisinopril)- Improved Both parts stopped, Added clindamycin for underlying infection Appreciated ID Consult appreciate OMFS- chlorhexidine mouthwash Polysubstance abuse - Positive for cocaine marijuana - Monitor for withdrawal - Benzodiazepines when necessary Hypertensive crisis- -Norvasc 10 mg daily, s/p Nicardipine Lisinopril 5 mg one dose then Stopped due to swelling upper lip angioedema UP and ambulating counselled DC home today OP ff up with a PCP, Neurology will ask CM for assistance Matty Dietrich MD Apr 04, 2017 13:13
[2017-04-04] MEDS ORDERED: CHLO.12%30 SWISH-SPIT (13:18)
[2017-04-04] MEDS ORDERED: CLIN150 PO (13:20)
[2017-04-04] MEDS ORDERED: DIFL100T PO (13:20)
[2017-04-04] MEDS ORDERED: PRED10 PO (13:27)
--- NOTE | 2017-04-04 13:31 | HHI.DS ---
Discharge Summary Admission Date Mar 22, 2017 at 16:40 Discharge Date: Apr 04, 2017 Admitting Diagnosis AMS, status epilepticus Procedures intubation Brief History - From Admission Young male was brought in by [facility] after being found unresponsive on [address] street. Per bystanders it seemed to be like a seizure episode. His blood glucose at the scene was 252 here. He was given narcan 0.4mg IV with no response. Later he was witnessed to have generalized tonic clonic seizure that lasted for 30 seconds here in the emergency department. It stopped before medication was given. The CT head was obtained emergently and shortly after the CT was done he had another episode of generalized tonic clonic seizure in which ativan 6mg was given. He was intubated for an airway protection and admitted to ICU. Imaging Last Impressions Brain MRI 03/30/17 0000 Signed Impressions: Service Date/Time: Thursday, March 30, 2017 15:19 - CONCLUSION: 1. Negative MRI of the brain with and without contrast. 2. Left maxillary sinus disease. Tate Fowler MD Lumbar Spine CT 03/26/17 0000 Signed Impressions: Service Date/Time: Sunday, March 26, 2017 15:57 - CONCLUSION: Normal examination for a patient of this age. Santos Mathews MD Chest X-Ray 03/22/17 1406 Signed Impressions: Service Date/Time: February 14:26 - CONCLUSION: 1. Endotracheal tube in good position 4 cm above the liza. 2. Nasogastric tube in good position in the stomach. 3. No acute focal pulmonary infiltrate or pulmonary vascular congestion. Livan Dos Santos MD Head CT 03/22/17 0000 Signed Impressions: Service Date/Time: February 14:05 - CONCLUSION: No acute intracranial findings. Kurt Ugarte MD Cervical Spine CT 03/22/17 0000 Signed Impressions: Service Date/Time: February 14:07 - CONCLUSION: 1. No acute disease. 2. Minimal cervical spondylosis is noted at C4-5 and to a lesser extent at C3-4 and C5-6. Livan Dos Santos MD PE at Discharge awake and alert, oriented x 3 anicteric upper lip swelling- , fulcrum with dry black scab, upper gingival area with ulcers- improving lower gingival area- no lesion no nuchal rigidity lungs no rales or wheezes regular rhythm abdomen soft, nontender extremities no edema Pt update on day of discharge awake and alert, no headaches neuro stable advise on no driving for 6 months, adequate sleep. no alcohol, cocaine avoid heights Hospital Course Acute hypoxemic Respiratory failure- Resolved -status post intubation Status epilepticus, Cocaine induced seizure -03/22Loaded with Dilantin, Then switched to Keppra by neurology Due to possible drug effect upper lip swelling stop cocaine - on Keppra 500 mg po bid ADvise on adequate sleep, no alcohol, cocaine no driving for 6 months OP ff upwith Dr. Lau Upper leg swelling With gingivitis? Drug induced(Dilantin and lisinopril)- Improved Both parts stopped, Added clindamycin for underlying infection Appreciated ID Consult appreciate OMFS- chlorhexidine mouthwash Polysubstance abuse - Positive for cocaine marijuana - Monitor for withdrawal - Benzodiazepines when necessary Hypertensive crisis- improved -Norvasc 10 mg daily, s/p Nicardipine Lisinopril 5 mg one dose then Stopped due to swelling upper lip angioedema UP and ambulating counselled DC home today OP ff up with a PCP, Neurology will ask CM for assistance Pt Condition on Discharge: Fair Discharge Disposition: Discharge Home Discharge Time: <= 30 minutes Discharge Instructions DIET: Follow Instructions for: Heart Healthy Diet Speech Therapy-Diet Recommends: Regular Activities you can perform: Weight Bearing as Octavio Activities to Avoid: Concussion Sports Other Activity Instructions: no driving or swiming or operating heavy machine for 6 months untill follow up with and cleared with neurology Follow up Referrals: Appointment for Follow Up Neurology - 2 Weeks with Gilson Lantigua MD PCP Follow-up - 1 Week with PCP-OPref New Medications: Hydralazine (Hydralazine) 100 Mg Tab 25 MG PO BID Take with meals Blood Pressure Management #60 Ref 0 TAB Levetiracetam (Keppra) 500 Mg Tab 500 MG PO BID Control Seizures #60 Ref 0 TAB Loratadine (Claritin) 10 Mg Cap 10 MG PO DAILY Allergy Management #10 Ref 0 CAP Walker with Front Wheels (Walker with Front Wheels) 1 Mis Mis 1 EA .ROUTE DIRECTED #1 Ref 0 EA Amlodipine (Norvasc) 10 Mg Tab 10 MG PO DAILY htn #30 TAB Chlorhexidine Gluconate (Mouth) Liq (Chlorhexidine Gluconate (Mouth) Liq) 0.12% Soln 15 ML SWISH-SPIT TID oralcare Days 10 ML Clindamycin (Cleocin) 150 Mg Cap 300 MG PO Q6HR ORALIN Days 5 Ref 0 CAP Fluconazole (Diflucan) 100 Mg Tab 100 MG PO DAILY ORALULc Days 5 Ref 0 TAB Prednisone (Prednisone) 10 Mg Tab 10 MG PO DAILY NINFA Days 2 Ref 0 TAB Matty Dietrich MD Apr 04, 2017 13:31
== END 2017-04-04 13:54 | disposition home or self-care (01) | DRG 100 ==
LOC: NEPC 13:57 → NEDA 16:40 → EDBD 16:40 → HIMW 18:20 → N05A 03-25 09:11
PROVIDERS: ADMIT Internal Medicine; ATTEND Internal Medicine
PROC: 0BH17EZ Insertion of Endotracheal Airway into Trachea, Via Natural or Artificial Opening (ICD-10-PCS; principal; 2017-03-22)
PROC: 5A1945Z Respiratory Ventilation, 24-96 Consecutive Hours (ICD-10-PCS; 2017-03-22)
DX: G40.401 Other generalized epilepsy and epileptic syndromes, not intractable, with status epilepticus (principal); G92 Toxic encephalopathy; J96.01 Acute respiratory failure with hypoxia; I16.9 Hypertensive crisis, unspecified; B37.0 Candidal stomatitis; E87.6 Hypokalemia; F19.10 Other psychoactive substance abuse, uncomplicated; T78.3XXA Angioneurotic edema, initial encounter; T40.5X5A Adverse effect of cocaine, initial encounter; K05.10 Chronic gingivitis, plaque induced; G43.909 Migraine, unspecified, not intractable, without status migrainosus; M54.5 Low back pain; R40.2422 Glasgow coma scale score 9-12, at arrival to emergency department
CPT/HCPCS: 36600; 36620; 70450; 70553; 71010; 72125; 72132; 76937; 80048; 80053; 80076; 80185; 80307; 81001; 82140; 82550; 82552; 82805; 82948; 83735; 84100; 84443; 84484; 85025; 85027; 85610; 85730; 87040; 87641; 93005; 93306; 94002; 94003; 95819; 96374; A9579; C9113; E0100; J0131; J0360; J1165; J1200; J1815; J1885; J1953; J2060; J2250; J2270; J2405; J2930; J3010; J3475; J3480; J7030; J7050; J7512; Q2009; Q9967